=== PATIENT | male | born 1950 | race Caucasian/White ===

== ENCOUNTER 2020-06-13 14:59 | Outpatient (CLI) | payer MEDICARE, OTHER, SELFPAY ==
[2020-06-13 17:06] LABS: Estmated Average Glucose 117; Hemoglobin A1C 5.7 % (4.0-6.0)
[2020-06-16 23:58] LABS: Immunoglobulin A 68 mg/dL (70-320)
[2020-06-17 15:34] LABS: Tissue Transglutaminase IgA Ab <1 U/mL; Tissue transglutaminase Ab.IgG 2 U/mL
[2020-06-19 16:38] LABS: Gliadin Ab.IgA 2 U (<20); Gliadin Ab.IgG 2 U (<20)
== END 2020-06-13 15:00 | disposition home or self-care (01) ==
LOC: LAB 15:03
PROVIDERS: PCP Internal Medicine; Visit Provider Internal Medicine
DX: E03.9 Hypothyroidism, unspecified (principal); E11.9 Type 2 diabetes mellitus without complications; K52.9 Noninfective gastroenteritis and colitis, unspecified; K90.0 Celiac disease
CPT/HCPCS: 82784; 83036; 83516; 84443; 99204

== ENCOUNTER → 2020-06-14 11:06 | Outpatient (BNVA) | payer MEDICARE, OTHER, SELFPAY | PROVIDERS: PCP Internal Medicine; Visit Provider Internal Medicine | DX: E03.9 Hypothyroidism, unspecified (principal); E11.9 Type 2 diabetes mellitus without complications; K52.9 Noninfective gastroenteritis and colitis, unspecified; K90.0 Celiac disease; R19.7 Diarrhea, unspecified | CPT/HCPCS: 87506 ==

== ENCOUNTER → 2020-07-24 12:59 | Outpatient (BNVA) | payer MEDICARE, OTHER, SELFPAY | PROVIDERS: PCP Internal Medicine; Visit Provider Internal Medicine | DX: E03.9 Hypothyroidism, unspecified (principal); E11.9 Type 2 diabetes mellitus without complications; K52.9 Noninfective gastroenteritis and colitis, unspecified; K90.0 Celiac disease | CPT/HCPCS: 99213 ==

== ENCOUNTER → 2020-08-28 13:18 | Outpatient (BNVA) | payer MEDICARE, OTHER, SELFPAY | PROVIDERS: PCP Internal Medicine; Visit Provider Internal Medicine | DX: E03.9 Hypothyroidism, unspecified (principal); E11.9 Type 2 diabetes mellitus without complications; E66.01 Morbid (severe) obesity due to excess calories; Z68.42 Body mass index [BMI] 45.0-49.9, adult; I10 Essential (primary) hypertension; K58.0 Irritable bowel syndrome with diarrhea | CPT/HCPCS: 99214 ==

== ENCOUNTER → 2020-10-12 10:25 | Outpatient (BNVA) | payer MEDICARE, OTHER, SELFPAY | PROVIDERS: PCP Internal Medicine; Visit Provider Internal Medicine | DX: E03.9 Hypothyroidism, unspecified (principal); E11.9 Type 2 diabetes mellitus without complications; E66.01 Morbid (severe) obesity due to excess calories; Z68.42 Body mass index [BMI] 45.0-49.9, adult; I10 Essential (primary) hypertension; K58.0 Irritable bowel syndrome with diarrhea | CPT/HCPCS: 99213 ==

== ENCOUNTER → 2020-10-16 11:03 | Outpatient (BNVA) | payer MEDICARE, OTHER, SELFPAY | PROVIDERS: PCP Internal Medicine; Visit Provider Internal Medicine | DX: E11.9 Type 2 diabetes mellitus without complications (principal); K52.9 Noninfective gastroenteritis and colitis, unspecified | CPT/HCPCS: 82784; 83036; 83516 ==

== ENCOUNTER → 2020-11-01 08:53 | Outpatient (BNVA) | payer MEDICARE, OTHER, SELFPAY | PROVIDERS: PCP Internal Medicine; Visit Provider Internal Medicine | DX: T18.9XXA Foreign body of alimentary tract, part unspecified, initial encounter (principal); X58.XXXA Exposure to other specified factors, initial encounter | CPT/HCPCS: 74018 ==

== ENCOUNTER → 2021-01-04 11:30 | Outpatient (BNVA) | payer MEDICARE, OTHER, SELFPAY | PROVIDERS: PCP Internal Medicine; Visit Provider Internal Medicine | DX: T18.9XXA Foreign body of alimentary tract, part unspecified, initial encounter (principal); X58.XXXA Exposure to other specified factors, initial encounter | CPT/HCPCS: 74018 ==

== ENCOUNTER 2021-02-05 04:54 | Inpatient (IN) | payer MEDICARE, OTHER, SELFPAY ==
[2021-02-05] VITALS (49 sets, daily range): BP systolic 105–166; BP diastolic 70–102; PULSE 78–100; RESP 11–31; TEMP 36.2; O2SAT 76–98; BMI 44.3
[2021-02-05 05:08] LABS: ABG PCO2 39.2 mmHg (35-45); ABG PH Result 7.43 (7.35-7.45); Arterial Blood Gas Hematocrit 46.2 % (42-52); Base Excess ABG 1.5 mmol/L (-2.0-2.0); Blood Gas Allen Test Pos; Blood Gas Sample Site Radial, left; Blood Gas Sample Type Arterial; HCO3 ABG 25.9 mmol/L (22-26); Oxygen Device OXY MASK; PO2 ABG 50.6 mmHg (80.0-100.0)
--- NOTE | 2021-02-05 05:11 | XRR_ITS ---
PROCEDURE INFORMATION: Exam: XR Chest Exam date and time: 02/05/2021 5:11 AM Age: 70 years old Clinical indication: Dyspnea; Additional info: SOB TECHNIQUE: Imaging protocol: XR of the chest. Views: 1 view. COMPARISON: CR XR abdomen 1V* [id number] 01/04/2021 11:36 AM FINDINGS: Lungs: Shallow lung volumes. Slight patchy densities in the right middle and lower lung and probable slight stranding in the medial left lung base, new since previously. No apparent consolidation. Pleural spaces: No pneumothorax or apparent pleural fluid. Heart/Mediastinum: Possible cardiomegaly despite the supine positioning. Mediastinal widening, possibly due to lipomatosis. Vasculature: Apparent narrowing of the distal trachea in the area of its mild displacement to the right by the aortic arch. Bones/joints: No visible acute bony disease. XR/XR chest 1V portable [id number] IMPRESSION: 1. Interval appearance of densities in the lower lungs possibly due to atelectasis and/or pneumonia. 2. Possible cardiomegaly. 3. Mild displacement and probable narrowing of the distal trachea due to the aortic arch. Other findings detailed above.
[2021-02-05 05:19] LABS: Glucose Point of Care 242 mg/dL (70-110)
[2021-02-05 05:27] LABS: Basophils % 0.1 %; Hematocrit 46.8 % (42.0-52.0); Hemoglobin 15.3 g/dL (11.7-16.6); Lymphocytes # 0.2 10^3/uL (0.8-4.8); Lymphocytes % 1.6 %; Mean Corpuscular HGB Conc 32.7 g/dL (30.0-36.0); Mean Corpuscular Hemoglobin 29.8 pg (28.0-34.0); Mean Corpuscular Volume 91.1 fL (80-94); Mean Platelet Volume 9.4 fL (7.4-10.4); Monocytes % 7.8 %; Neutrophils # 10.43 10^3/uL (1.8-7.7); Neutrophils % 82.1 %; Nucleated Red Blood Cells % 0 %; Platelet Count 309 10^3/cmm (130-400); Red Blood Count 5.14 10^6/uL (4.1-5.3); Red Cell Distribution Width 14.1 % (12.1-15.1); White Blood Count 12.7 10^3/uL (4.0-10.0)
[2021-02-05 05:45] LABS: Lactic Sepsis W/Reflex 1.4 mmol/L (0.5-2.2)
[2021-02-05 05:57] LABS: Slide Review Slide Review Perform
--- NOTE | 2021-02-05 07:19 | W.ED.SOB ---
HPI - SOB/Dyspnea General: Chief Complaint: Shortness of Breath/Dyspnea Stated Complaint: fall,dizzy,nausea,sob Time Seen by Provider: 02/05/21 04:58 History of Present Illness: HPI Narrative: 70-year-old diabetic male with a history of COVID-19. He is on day 12 I believe. He spent 5 days in the hospital in [facility] getting treatment, mainly with oxygen. He was sent home yesterday. He states he has been dizzy since he was sent home. 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 On EMS arrival, his oxygen saturation was evidently in the mid 60s MD elicited complaint: shortness of breath and cough Pertinent past history: diabetes Onset (ago): day(s) Context: recent illness Timing: constant Severity: moderate Exacerbating factors: lying flat and exertion Relieving factors: oxygen, rest and upright position Associated symptoms: Reports cough and dizziness; Deny chest pain, diaphoresis, fever(s), hemoptysis, nausea, syncope or vomiting Review of Systems Const: Denies: fever(s) or diaphoresis Card: Denies: chest pain or syncope Resp: Denies: hemoptysis GI: Denies: nausea or vomiting Neuro: Reports: dizziness PFSH ED PFSH: Medical History Celiac disease Diabetes mellitus type II, non insulin dependent Diverticulosis Non-Hodgkin's lymphoma in remission Surgical History History of arthroscopic knee surgery Family History Mother Diabetes Social History Smoking and tobacco status: former smoker Alcohol intake: never Physical Exam Const: GENERAL APPEARANCE: ill appearing and frail appearing ORIENTATION/CONSCIOUSNESS: Yes oriented to person and Yes oriented to place; not oriented to time HENMT: COMMON NORMALS: normocephalic and Normal external nose present HEAD & SCALP: normocephalic FACE & SINUS: normal facial exam NOSE: Normal external nose present and No nasal discharge present Eye: COMMON NORMALS: Equal, round and reactive pupils present, EOMs intact bilaterally and conjunctivae normal EYELID: eyelids normal CONJUNCTIVA: Yes conjunctivae normal PUPIL: Yes Equal, round and reactive pupils present Neck/C-Spine: GENERAL: No tracheal deviation Chest: COMMONS NORMALS: normal inspection of the chest Resp: COMMON NORMALS: clear to auscultation bilaterally EFFORT & INSPECTION: Yes tachypneic, Yes respiratory distress, Yes retractions, No uses accessory muscles and No tracheal deviation AUSCULTATION: clear to auscultation bilaterally, no rhonchi, no wheezes and diminished lung sounds Cardio: COMMON NORMALS: regular rate and regular rhythm RATE: regular rate RHYTHM: regular rhythm HEART SOUNDS: no murmurs PERIPHERAL PULSES: radial pulses present GI: INSPECTION: No abdominal distension AUSCULTATION: No Hyperactive bowel sounds present and No Hypoactive bowel sounds present PALPATION: No Guarding due to palpation present (GI) and No Rigid due to palpation PERCUSSION: no dullness to percussion and no tympanic to percussion Neuro: SENSORIUM/ORIENTATION: Yes oriented to person, Yes oriented to place and No oriented to time Psych: COMMON NORMALS: mental status grossly normal Skin: COMMON NORMALS: no rashes or lesions noted GENERAL SKIN EXAM: no rashes or lesions noted Course Vital Signs: Vital signs: Vital Signs Temperature 97.1 F L 02/05/21 04:57 Pulse Rate 78 02/05/21 06:22 Respiratory Rate 20 H 02/05/21 06:22 Blood Pressure 150/92 02/05/21 06:22 Pulse Oximetry 98 02/05/21 06:22 MDM - SOB/Dyspnea MDM Narrative: Medical decision making narrative: Patient originally placed on oxygen mask on arrival with oxygen saturations in the upper 80s to low 90s. He then began to get tired, and had to be placed on BiPAP. He is tolerating the BiPAP nicely with a saturation of 93%. Respirations of come down. His heart rates in the 80s. White blood cell count 12.7. Hemoglobin is 15. Chest x-ray shows airspace densities in the lower lungs bilaterally. The rest of this patient's laboratory is pending. He will be checked out to Dr. Kemp at shift change. As he is on BiPAP, he will require admission. Lab Data: Labs: Lab Results 02/05/21 02/05/21 02/05/21 Range/Units 05:00 05:00 05:00 WBC 12.7 H (4.0-10.0) 10^3/ uL RBC 5.14 (4.1-5.3) 10^6/u L Hgb 15.3 (11.7-16.6) g/dL Hct 46.8 (42.0-52.0) % MCV 91.1 (80-94) fL MCH 29.8 (28.0-34.0) pg MCHC 32.7 (30.0-36.0) g/dL RDW 14.1 (12.1-15.1) % Plt Count 309 (130-400) 10^3/c mm MPV 9.4 (7.4-10.4) fL Neut % (Auto) 82.1 % Lymph % (Auto) 1.6 % Nash % (Auto) 7.8 % Eos % (Auto) 0.0 % Baso % (Auto) 0.1 % Neut # (Auto) 10.43 H (1.8-7.7) 10^3/u L Lymph # (Auto) 0.2 L (0.8-4.8) 10^3/u L Nash # (Auto) 1.0 H (0.2-0.9) 10^3/u L Eos # (Auto) 0.0 (0.0-0.8) 10^3/u L Baso # (Auto) 0.0 (0.0-0.1) 10^3/u L Nucleated RBC % (a uto) 0 % Nucleated RBCs # 0.0 /100WBC Fibrinogen (174-498) mg/dL Specimen Type Arterial Sample Site Radial, left ABG pH 7.43 (7.35-7.45) ABG pCO2 39.2 (35-45) mmHg ABG pO2 50.6 L (80.0-100.0) mmH g ABG HCO3 25.9 (22-26) mmol/L ABG Base Excess 1.5 (-2.0-2.0) mmol/ L Luis Test Pos Hematocrit 46.2 (42-52) % O2 Delivery Device Oxy mask O2 Liters/Min 6.0 % Gas Compressor Turbine Operator ID [email or web address] Sodium Cancelled Potassium Cancelled Chloride Cancelled Carbon Dioxide Cancelled Anion Gap Cancelled BUN Cancelled Creatinine Cancelled GFR Calculation Cancelled Glucose Cancelled POC Glucose (70-110) mg/dL Calculated Osmolal ity Cancelled Lactic Acid (0.5-2.2) mmol/L Calcium Cancelled Total Bilirubin Cancelled AST Cancelled ALT Cancelled Alkaline Phosphata se Cancelled C-Reactive Protein Cancelled NT-Pro-B Natriuret Pep Cancelled Total Protein Cancelled Albumin Cancelled Globulin Cancelled Procalcitonin Cancelled 02/05/21 02/05/21 02/05/21 Range/Units 05:00 05:15 08:22 WBC (4.0-10.0) 10^3/ uL RBC (4.1-5.3) 10^6/u L Hgb (11.7-16.6) g/dL Hct (42.0-52.0) % MCV (80-94) fL MCH (28.0-34.0) pg MCHC (30.0-36.0) g/dL RDW (12.1-15.1) % Plt Count (130-400) 10^3/c mm MPV (7.4-10.4) fL Neut % (Auto) % Lymph % (Auto) % Nash % (Auto) % Eos % (Auto) % Baso % (Auto) % Neut # (Auto) (1.8-7.7) 10^3/u L Lymph # (Auto) (0.8-4.8) 10^3/u L Nash # (Auto) (0.2-0.9) 10^3/u L Eos # (Auto) (0.0-0.8) 10^3/u L Baso # (Auto) (0.0-0.1) 10^3/u L Nucleated RBC % (a uto) % Nucleated RBCs # /100WBC Fibrinogen 641 H (174-498) mg/dL Specimen Type Sample Site ABG pH (7.35-7.45) ABG pCO2 (35-45) mmHg ABG pO2 (80.0-100.0) mmH g ABG HCO3 (22-26) mmol/L ABG Base Excess (-2.0-2.0) mmol/ L Luis Test Hematocrit (42-52) % O2 Delivery Device O2 Liters/Min % Gas Compressor Turbine Operator ID Sodium Potassium Chloride Carbon Dioxide Anion Gap BUN Creatinine GFR Calculation Glucose POC Glucose 242 H (70-110) mg/dL Calculated Osmolal ity Lactic Acid 1.4 (0.5-2.2) mmol/L Calcium Total Bilirubin AST ALT Alkaline Phosphata se C-Reactive Protein NT-Pro-B Natriuret Pep Total Protein Albumin Globulin Procalcitonin Discharge Plan Discharge Patient Disposition: Admitted As Inpatient Clinical Impression: Acute respiratory failure with hypoxia, COVID-19 Condition: Serious Coding Level of Care Code 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
[2021-02-05] MEDS: acetaminophen 500 mg Tablet 1000 MG PO (08:03)
[2021-02-05 08:43] LABS: Fibrinogen 641 mg/dL (174-498)
[2021-02-05 08:57] LABS: Alanine Aminotransferase 25 U/L (0-41); Albumin Level 3.3 g/dL (3.5-5.2); Alkaline Phosphatase 89 IU/L (40-130); Anion Gap 18.2 (5-19); Aspartate Amino Transferase 26 U/L (0-40); Blood Urea Nitrogen 31 mg/dL (8-23); C Reactive Protein 82.9 mg/L (0.0-4.9); Calcium 9.1 mg/dL (8.5-10.5); Carbon Dioxide 29 mmol/L (22-29); Chloride 98 mmol/L (98-107); Globulin 3.8 g/dL (1.3-4.6); Glucose 194 mg/dL (65-115); NT Pro B Type Natriuretic Pept 776 pg/mL (0-125); Osmolality Calculated 304 mOsm/kg (285-295); Potassium 4.2 mmol/L (3.5-5.1); Sodium 141 mmol/L (136-145); Total Bilirubin 0.7 mg/dL (0.15-1.2); Total Protein 7.1 g/dL (6.6-8.7)
[2021-02-05 09:02] LABS: D Dimer >= 20.00 ug/mIFEU (0-0.59)
--- NOTE | 2021-02-05 09:15 | CTR_ITS ---
PROCEDURE INFORMATION: Exam: CTA Chest With Contrast Exam date and time: 02/05/2021 9:15 AM Age: 70 years old Clinical indication: Shortness of breath; Patient HX: PT post covid 12 days, now very SOB and low 02 with a d-dimer greater that 20; Additional info: Shortness of breath, pulmonary embolism protocol. Covid +12 days ago. On bipap TECHNIQUE: Imaging protocol: Computed tomographic angiography of the chest with contrast. 3D rendering (Not supervised by radiologist): MIP and/or 3D reconstructed images were created by the technologist. Radiation optimization: All CT scans at this facility use at least one of these dose optimization techniques: automated exposure control; mA and/or kV adjustment per patient size (includes targeted exams where dose is matched to clinical indication); or iterative reconstruction. Contrast material: OMNI 350; Contrast volume: 68 ml; Contrast route: INTRAVENOUS (IV); COMPARISON: CR (CHEST, ) 02/05/2021 5:49 AM RADIATION DOSE METRICS: Total DLP (mGy-cm): 501.34 FINDINGS: Pulmonary arteries: No evidence of pulmonary embolism to the segmental level. Motion limits evaluation of the lung bases and subsegmental emboli cannot be excluded. Aorta: Unremarkable. No aortic aneurysm. No aortic dissection. Lungs: Extensive interstitial and alveolar opacities throughout the both lungs. with relative sparing of the anterior portions. Expiratory phase imaging; major airways patent. Pleural spaces: Unremarkable. No pneumothorax. No pleural effusion. Heart: Unremarkable. No cardiomegaly. No pericardial effusion. Lymph nodes: Unremarkable. No enlarged lymph nodes. Bones/joints: No acute or aggressive osseous lesion. Soft tissues: Unremarkable. CT/CT angio chest [id number] IMPRESSION: 1. No evidence of pulmonary embolism to the segmental level. Motion limits evaluation of the lung bases and subsegmental emboli cannot be excluded. 2. Extensive bilateral interstitial and alveolar opacities with relatively sparing of the anterior lungs, consistent with multifocal pneumonia. Radiation Dose CTDIVOL = (mGy): DLP = 501.34 (mGy-cm)
[2021-02-05] MEDS: piperacillin-tazobactam 4.5 GM in sodium chloride 0.9% (plus) 50 ML IV (09:17)
[2021-02-05] MEDS: iohexol 350 mg/mL 100 mL Btl IV (10:13)
--- NOTE | 2021-02-05 10:23 | PC.PHAR ---
pts verified pts medications-pts states the pt is still taking levothyroxine 88mcg (last filled on 07/31/20 90d/s) and lovastatin 40mg (last filled on 07/18/20 90d/s [facility] states [facility] have another rx on hold)-pts states the pt only took cymbalta 30mg for a week last filled on 10/25/20 90d/s-pts states the pt only takes the sildenafil 50mg as prn rx filled on 11/20/20 90d/s for 50mg daily-pts states the pt never started the augmentin 875/125mg filled on 01/24/21 10d/s
[2021-02-05] MEDS: dexamethasone 4 mg/mL INJ 6 MG IVP (11:45)
--- NOTE | 2021-02-05 12:05 | ECG_ITS ---
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
--- NOTE | 2021-02-05 12:08 | P.HP_ITS ---
Providers/Chief Complaint Primary Care Provider: Alvin Osei MD Chief Complaint: fall,dizzy,nausea,sob History of Present Illness Kain Gallegos is a 70 year old male who was recently at [facility] hospitalized from January 31 through February 04. Records are still pending but from talking with I believe he likely received remdesivir and dexamethasone there. He was discharged on the , on 3 to 4 L of oxygen. reports as soon as she got him home she noticed his saturation was low and increased it to 4 to 5 L. He was confused at times, and ultimately fell at home 7 to 8 hours later and she decided to bring him into the hospital. He has had symptoms since around the . Symptoms that started then was just a very mild cough. He became more ill and was coughing up some blood on the or and at that time she had them tested for Covid, and the test was positive. He has not had fevers in the last several days. He has not been eating very poorly and drinking very poorly. He has had some nausea but no vomiting. He always has some loose stool. He has not continued to cough up any blood. He is very short of breath, with any activity and reports when he removes the BiPAP just briefly to take a sip in the emergency department he gets very short of breath and his saturation plummets. He denies any chest discomfort. He has been vaccinated with the last vaccination November 04. He has not had any recent chemotherapy in years for his non-Hodgkin's lymphoma which is in remission. While in the emergency department and ABG was performed, demonstrating hypoxia and he was placed on BiPAP. CTA was performed which demonstrated multifocal pneumonia, no definite pulmonary embolism although it was a poor study. He received a dose of Zosyn at around 840 in the morning. I have been told that we do not have capacity for this patient currently as all ICU rooms are filled and it is unlikely one will be available in the near future. Therefore this history and physical can be viewed as a consultation if he is transferred to an outside facility. I am trying to coordinate care and start treatment as early as possible to improve outcome. Review of Systems General: Reports: 10 or more systems reviewed and unremarkable except in HPI and below Const: Reports: fatigue; Denies: fever(s) Eyes: Denies: change in vision ENMT: Denies: throat pain Card: Denies: chest pain Resp: Reports: dyspnea, productive cough and hemoptysis GI: Reports: nausea; Denies: abdominal pain, vomiting, hematochezia or melena : Denies: flank pain Musc: Denies: neck pain Skin/Breast: Denies: rash Neuro: Reports: confusion; Denies: headache(s) Psych: Denies: anxiety or depression Endo: Denies: polyuria Rinku/Lymph: Denies: easy bruising All/Imm: Denies: urticaria Medications/Allergies Home Medications Medication Instructions Recorded Confirmed Last Taken Type cetirizine 10 mg tablet 10 mg PO QAM 06/13/20 02/05/21 02/05/21 History levothyroxine 88 mcg tablet 88 mcg PO QAM 06/13/20 02/05/21 02/05/21 History lovastatin 40 mg tablet 40 mg PO BEDTIME 06/13/20 02/05/21 Unknown History Actos 15 mg PO QAM 02/05/21 02/05/21 02/05/21 History Vitamin C 1 tab PO DAILY 02/05/21 02/05/21 Unknown History Vitamin D3 1 tab PO DAILY 02/05/21 02/05/21 Unknown History amoxicillin-pot clavulanate 1 tab PO BID 02/05/21 02/05/21 Unknown History elderberry fruit [Elderberry] 200 mg PO DAILY 02/05/21 02/05/21 Unknown History empagliflozin [Jardiance] 25 mg PO QAM 02/05/21 02/05/21 02/05/21 05:00 History fluticasone propionate [Flonase] 2 spray INTRANASAL QAM 02/05/21 02/05/21 Unknown History ketoconazole 1 applic TOPICAL . DIRECTED 02/05/21 02/05/21 Unknown History liraglutide [Victoza 3-Amandeep] 1.8 mg SUBCUT QAM 02/05/21 02/05/21 02/05/21 05:00 History sildenafil 50 mg PO DAILY PRN 02/05/21 02/05/21 Unknown History tizanidine 4 mg PO TID PRN 02/05/21 02/05/21 Unknown History zinc 1 tab PO DAILY 02/05/21 02/05/21 Unknown History Allergies Allergy/AdvReac Type Severity Reaction Status Date / Time Sulfa (Sulfonamide Allergy rash Verified 02/05/21 10:19 Antibiotics) PFSH Acute PFSH: Medical History (Updated 02/05/21 @ 12:31 by Sanjay Terrazas MD) Celiac disease Diabetes mellitus type II, non insulin dependent Diverticulosis Non-Hodgkin's lymphoma in remission Surgical History History of arthroscopic knee surgery Family History Mother Diabetes Social History Smoking and tobacco status: former smoker Alcohol intake: never Vitals/I&O/Wt Last Vital Signs Temp 97.1 F L 02/05/21 04:57 Pulse 84 02/05/21 09:23 Resp 18 02/05/21 09:16 BP 166/97 02/05/21 09:16 Pulse Ox 94 02/05/21 09:23 Weight last 48 hrs Weight 144.242 kg Physical Exam Narrative: EXAM NARRATIVE: General exam is an obese male, on BiPAP, who is able to answer few questions and has no obvious focal deficits HEENT: Pupils equally round. Oropharynx with BiPAP on Neck is supple no lymphadenopathy or thyromegaly Cardiovascular regular rate and rhythm, no murmur Lungs scattered rales without wheezing Abdomen is soft with positive bowel sounds. No obvious organomegaly was deferred Extremities no cyanosis clubbing. Trace edema is present Neuro no obvious focal deficits. Data : 02/05/21 05:00 02/05/21 08:22 Micro: Microbiology 02/05/21 08:22 Blood Culture - Preliminary Blood SPECIMEN COLLECTED 02/05/21 08:22 Blood Culture - Preliminary Blood SPECIMEN COLLECTED Other data: Chest x-ray demonstrates multilobar infiltrates. CTA demonstrates the same, no pulmonary embolism, poor quality, movement obscuring subsegmental arterials Fibrinogen 641, dimer 20 ABG demonstrates a pH of 7.43, PCO2 of 39, PO2 of 50 on 6 L oxygen mask BNP elevated at 776. LFTs normal EKG demonstrates sinus rhythm, normal axis, no acute changes A&P Assessment and plan (1) Pneumonia due to COVID-19 virus: Patient with history of positive COVID-19 testing on 24 January according to . She is very specific and appears to be an excellent historian. Unfortunately those records are not available currently. He was hospitalized at [facility] for COVID-19 pneumonia and per history likely received dexamethasone and probably remdesivir. He has had evidence of multifocal pneumonia consistent with COVID-19. Initiate remdesivir. This may be a second 5-day course or perhaps initial if he was not given this at [facility]. Risks and benefits discussed. Dexamethasone 6 mg IV daily Review if appropriate for Tocilizumab. Note that his dimer is slightly over 75. I will be repeating these levels tomorrow and if there is any worsening consider initiation. I also will need to know if he received this at the outlying hospital. Support with BiPAP, changed to high flow oxygen if tolerated Nebs every 6 hours Note that he is vaccinated. Prophylactically we will continue Zosyn. Check MRSA PCR. Check sputum culture. Check procalcitonin. gives vague history of possible gastroparesis as well so cannot rule out aspiration. However, I think bacterial pneumonitis is much less likely. Try to balance fluid intake and output. However at this time will give 1 dose of Lasix. N.p.o. until respiratory status stabilizes. Then will initiate clear liquid consistent carb diet. Markedly elevated dimer noted. Although no definite pulmonary embolism is seen, study was poor with motion and subsegmental pulmonary arteries were not visualized. Given the patient's markedly elevated dimer, history of hemoptysis I am going to place him on a heparin drip. Check venous duplex. Status: Acute (2) Acute respiratory failure with hypoxia: See above Status: Acute (3) Elevated brain natriuretic peptide (BNP) level: Lasix 40 mg IV x1 Check troponin Check echocardiogram Status: Acute (4) Diabetes mellitus type II, non insulin dependent: Lantus nightly Sliding scale insulin Expect his blood sugars to be higher secondary to dexamethasone Status: Acute (5) Hypothyroidism: Check TSH, continue supplementation Status: Acute Qualifiers: Hypothyroidism type: acquired Qualified Code(s): E03.9 - Hypothyroidism, unspecified (6) Hypertension: Monitor Status: Acute Qualifiers: Hypertension type: essential hypertension Qualified Code(s): I10 - Essential (primary) hypertension (7) IBS (irritable bowel syndrome): Status: Acute Qualifiers: Irritable bowel syndrome type: with diarrhea Qualified Code(s): K58.0 - Irritable bowel syndrome with diarrhea (8) Non-Hodgkin's lymphoma in remission: No recent chemo Status: Acute Additional A&P Information Hyperlipidemia. Continue statin Multiple other medical problems as outlined in past medical history Full code Heparin drip will suffice for DVT prophylaxis Attestations Medical Necessity Statement*: Will need greater than 2 midnight stay secondary to COVID-19 pneumonia with respiratory failure Time Spent in Patient Care: Greater than 35 minutes Critical Care Time: The high probability of a clinically significant, sudden or life threatening deterioration of the patient's [pulmonary, cardiac] system(s) required my full and direct attention, intervention and personal management. The critical care time is as shown. 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
[2021-02-05] MEDS: remdesivir 200 MG in sodium chloride 0.9% (100 ml) 100 ML 100 MG IV (12:28)
[2021-02-05] MEDS: FUROsemide 10 mg/mL SDV 4mL 40 MG IVP (12:30)
[2021-02-05 12:51] LABS: ABG PCO2 40.9 mmHg (35-45); ABG PH Result 7.46 (7.35-7.45); Arterial Blood Gas Hematocrit 47.4 % (42-52); Base Excess ABG 4.6 mmol/L (-2.0-2.0); Blood Gas Allen Test Pos; Blood Gas Sample Type Arterial; HCO3 ABG 28.9 mmol/L (22-26); PO2 ABG 69.1 mmHg (80.0-100.0)
[2021-02-05 12:52] LABS: Blood Gas Sample Site Radial, left; Oxygen Device BIPAP
[2021-02-05 13:02] LABS: Procalcitonin 0.11 ng/mL (0-0.5); Thyroid Stimulating Hormone 0.13 uIU/mL (0.27-4.20)
[2021-02-05 13:19] LABS: Troponin T (5th) Once 16 ng/L (0-15)
[2021-02-05] MEDS: heparin drip 25,000 UNIT/500 ML PREMIX 103.85 UNIT IV (14:13)
[2021-02-05] MEDS: heparin 5,000 unit/mL INJ 1 mL IV ×2 (14:20→21:07)
[2021-02-05 14:52] LABS: Urine Appearance Clear (CLEAR); Urine Color Straw (Yellow)
[2021-02-05 14:53] LABS: Bilirubin Urine Neg (Negative); Blood Urine 2+ (Negative); Glucose Urine UA 4+ (Normal); Ketones Urine 1+ (Negative); Leukocyte Esterase Urine Negative (Negative); Nitrate Urine Negative (Negative); Protein Urine Neg (Negative); Urobilinogen Urine Norm (Negative); pH Urine 5 (5-7)
[2021-02-05 14:54] LABS: Add Urine Culture? No; Bacteria Urine TRACE /hpf; WBC Urine RARE /hpf (0-5)
[2021-02-05 16:58] LABS: Glucose Point of Care 165 mg/dL (70-110)
[2021-02-05] MEDS: piperacillin-tazobactam 3.375 GM in sodium chloride 0.9% (plus) 50 ML IV (18:08)
--- NOTE | 2021-02-05 18:15 | PC.PT ---
I spoke to his nurse today and she states that he had fallen and spent the day in ER. She'd like for us to do his eval tomorrow.
--- NOTE | 2021-02-05 19:00 | PC.NURSE ---
Heparin Drip Heparin drip infusing at 25 mls/hr at the beginning of this nurse shift. Lab came to draw PTT at 1900. PTT result came back 33.8, gave 7000 unit Heparin bolus per protocol and titrated drip up to 33 mls/hr per Heparin protocol.
[2021-02-05 19:25] LABS: INR 1.03 (0.8-1.2)
[2021-02-05 19:59] LABS: Partial Thromboplastin Time 33.8 SECONDS (23.9-36.7)
[2021-02-05] MEDS: ipratropium-albuterol 3 mL Neb INHALATION (20:26)
[2021-02-05] MEDS: insulin glargine 100 units/1 mL 10 UNIT SUBCUT (21:06)
[2021-02-05] MEDS: atorvastatin 40 mg Tablet 20 MG PO (21:06)
[2021-02-05 21:30] LABS: Glucose Point of Care 230 mg/dL (70-110)
[2021-02-06] VITALS (65 sets, daily range): BP systolic 117–156; BP diastolic 55–92; PULSE 72–98; RESP 13–30; TEMP 36.6–37.2; O2SAT 79–98; BMI 43.1
[2021-02-06] MEDS: piperacillin-tazobactam 3.375 GM in sodium chloride 0.9% (plus) 50 ML IV ×3 (01:58→18:49)
[2021-02-06] MEDS: ipratropium-albuterol 3 mL Neb INHALATION ×4 (02:14→20:22)
--- NOTE | 2021-02-06 04:30 | PC.NURSE ---
Heparin Drip-No Change Lab bhanu PTT this morning, it was 58.1 per protocol Heparin drip remained the same at 33 mls/hr.
[2021-02-06 05:26] LABS: INR 1.09 (0.8-1.2)
[2021-02-06 05:28] LABS: Partial Thromboplastin Time 58.1 SECONDS (23.9-36.7)
[2021-02-06 05:31] LABS: Alanine Aminotransferase 21 U/L (0-41); Albumin Level 2.8 g/dL (3.5-5.2); Alkaline Phosphatase 80 IU/L (40-130); Anion Gap 14.2 (5-19); Aspartate Amino Transferase 18 U/L (0-40); Blood Urea Nitrogen 29 mg/dL (8-23); C Reactive Protein 69.8 mg/L (0.0-4.9); Calcium 8.7 mg/dL (8.5-10.5); Carbon Dioxide 29 mmol/L (22-29); Chloride 97 mmol/L (98-107); Globulin 3.3 g/dL (1.3-4.6); Glucose 109 mg/dL (65-115); Osmolality Calculated 290 mOsm/kg (285-295); Potassium 3.2 mmol/L (3.5-5.1); Sodium 137 mmol/L (136-145); Total Bilirubin 0.6 mg/dL (0.15-1.2); Total Protein 6.1 g/dL (6.6-8.7)
--- NOTE | 2021-02-06 06:30 | PC.NURSE ---
Shift Summary Patient had an uneventful night. He is on heated high flow at 50 L and 80% FIO2. Heparin drip is infusing in the right AC IV site at 33 mls/hr per protocol, left AC IV is saline locked. Matos catheter drained 1000 mls out of dark yellow urine all evening. Patient had one formed bowel movement. He has a skin tear on the left and right forearm, both are covered with dressings, no other skin issues noted at this time.
[2021-02-06] MEDS: heparin drip 25,000 UNIT/500 ML PREMIX 33 UNIT IV (06:43)
[2021-02-06 07:33] LABS: Magnesium 1.9 mg/dL (1.7-2.3)
[2021-02-06 08:07] LABS: Glucose Point of Care 188 mg/dL (70-110)
[2021-02-06] MEDS: potassium chloride ER 20 mEq Tablet 40 MEQ PO (08:20)
[2021-02-06] MEDS: levothyroxine 75 mcg Tablet PO (08:21)
[2021-02-06] MEDS: dexamethasone 4 mg/mL INJ 6 MG IVP (08:24)
--- NOTE | 2021-02-06 09:38 | PC.CHAP ---
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 [] Patient/Family/Request visit [] Outpatient visit [] Follow-up visit [] Physician referral [] Code/Alert [x] Routine visit [] Staff referral [] Actively dying [] Patient sleeping [] Family support [] [] Out of room [] Palliative care [] [x] Receiving care in room [] Pre-surgical visit [] Trauma [] Long length of stay [x] ICU visit [] Other: Relational/Emotional Strength [] Patient feels connected with others/family/visitors/staff [] Distress [] Loneliness/isolation [] Abandonment Spirituality of Patient [] Person of Renetta [] Attends Muslim of their [place] [] Believes in Prayer [] Reads Bible or Religion materials [] There are Spiritual issues to be addressed Band And Cuff Cutter Interventions [x] Prayer [] Active listening [] Non-anxious presence [] Spiritual/emotional support [] Crisis/trauma care [] Spiritual counseling [] Bereavement support [] Provided bereavement packet [] Provided Bible/devotional materials [] Provided toy/stuffed animal, coloring book to patient or family member [] Provided Communion [] Anointing/[place] [] Salvation [x] Completed spiritual assessment [] Other: Impact on Illness or Injury [] Angry [] Fearful [] Anxious [] Often cries [] Exhaustion [] Unable to work [] Unable to attend gnosticism [] Unable to walk/stand [] Unable to read [] Unable to drive [] Unable to eat/drink [] Unable to sleep [] Unable to be with family [] Patient intubated [] Other: Summary Time spent with patient
--- NOTE | 2021-02-06 09:42 | P.PN_ITS ---
Subjective Subjective: Interval history: Kain reports he does not feel much shortness of breath while on the oxygen. He is still feeling very weak. No overall changes since last night. He denies any chest discomfort. He has had no hemoptysis in the hospital. Medications: Reviewed: Yes Vitals/I&O/Wt Last Vital Signs Temp 98.3 F 02/06/21 08:30 Pulse 90 02/06/21 09:00 Resp 20 H 02/06/21 09:00 BP 142/81 02/06/21 09:00 Pulse Ox 92 02/06/21 09:00 02/05/21 02/06/21 02/06/21 22:59 06:59 14:59 Intake Total 786.749 / 786.749 293.251 / 1080.000 Output Total 1600 / 1600 1000 / 2600 Balance -813.251 / -813.251 -706.749 / -1520.000 Weight last 48 hrs Weight 140.188 kg Weight 144.242 kg Physical Exam Narrative: EXAM NARRATIVE: General exam currently on high flow nasal cannula, and does not appear to be in respiratory distress on this. Neck is supple no lymphadenopathy or thyromegaly Cardiovascular regular rate and rhythm, no murmur Lungs scattered rales without wheezing Abdomen is soft with positive bowel sounds. No obvious organomegaly Extremities no cyanosis clubbing. No significant edema Urinary Catheter Management^: Matos: Cath Placed During This Visit: yes Reason for Continuing Indwelling Catheter: Accurate Measurement of Urinary Output in Critically Ill Patients Urinary Catheter Date of Insertion: 02/05/21 Urinary Catheter Time of Insertion: 13:00 Data : 02/05/21 05:00 02/06/21 04:31 Micro: Microbiology 02/05/21 08:22 Blood Culture - Preliminary Blood NEGATIVE TO DATE 02/05/21 08:22 Blood Culture - Preliminary Blood NEGATIVE TO DATE A&P Assessment and plan (1) Pneumonia due to COVID-19 virus: Patient with history of positive COVID-19 testing on 24 January according to . He was tested for Covid and apparently was negative at that time but retested on January 31 when admitted to [facility] and was positive at that time. He received dexamethasone, but I do not have any indication that he received remdesivir at that time. He has had evidence of multifocal pneumonia consistent with COVID-19. Currently on remdesivir. This would be his initial 5-day course. Benefit may be low Continue dexamethasone 6 mg IV daily Initiate Tocilizumab. Oxygenation appears worse today. Discussed with pulmonary who will also consult. Nebs every 6 hours Note that he is vaccinated fully. Prophylactically we will continue Zosyn. Await MRSA PCR. Await sputum culture. Procalcitonin was not elevated. gives vague history of possible gastroparesis as well so cannot rule out aspiration. However, I think bacterial pneumonitis is much less likely. Try to balance fluid intake and output. Negative fluid balance currently Change diet to consistent carb Markedly elevated dimer noted. Although no definite pulmonary embolism is seen, study was poor with motion and subsegmental pulmonary arteries were not visualiz ed. Given the patient's markedly elevated dimer, history of hemoptysis I placed him on a heparin drip. Venous duplex was ordered and pending Status: Acute (2) Acute respiratory failure with hypoxia: See above Pulmonary consultation today. Status: Acute (3) Elevated brain natriuretic peptide (BNP) level: Lasix 40 mg IV x1 given in emergency department Troponin not significantly elevated Await echocardiogram Status: Acute (4) Diabetes mellitus type II, non insulin dependent: Lantus nightly Sliding scale insulin Expect his blood sugars to be higher secondary to dexamethasone Status: Acute (5) Hypothyroidism: TSH low. Thyroid hormone adjusted Status: Acute Qualifiers: Hypothyroidism type: acquired Qualified Code(s): E03.9 - Hypothyroidism, unspecified (6) Hypertension: Monitor Status: Acute Qualifiers: Hypertension type: essential hypertension Qualified Code(s): I10 - Essential (primary) hypertension (7) IBS (irritable bowel syndrome): Status: Acute Qualifiers: Irritable bowel syndrome type: with diarrhea Qualified Code(s): K58.0 - Irritable bowel syndrome with diarrhea (8) Non-Hodgkin's lymphoma in remission: No recent chemo Status: Acute Additional A&P Information Hypokalemia, supplement today hyperlipidemia. Continue statin Multiple other medical problems as outlined in past medical history Full code Heparin drip will suffice for DVT prophylaxis Attestations Medical Necessity Statement*: Needs continued hospitalization secondary to acute respiratory failure requiring high amounts of high flow oxygen Critical Care Time: The high probability of a clinically significant, sudden or life threatening deterioration of the patient's [pulmonary] system(s) required my full and direct attention, intervention and personal management. The critical care time is as shown. 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
[2021-02-06 10:38] LABS: Basophils % 0.1 %; Eosinophils % 0.1 %; Hematocrit 43.4 % (42.0-52.0); Hemoglobin 14.2 g/dL (11.7-16.6); Lymphocytes # 0.3 10^3/uL (0.8-4.8); Lymphocytes % 2.5 %; Mean Corpuscular HGB Conc 32.7 g/dL (30.0-36.0); Mean Corpuscular Hemoglobin 29.3 pg (28.0-34.0); Mean Corpuscular Volume 89.5 fL (80-94); Mean Platelet Volume 9.4 fL (7.4-10.4); Monocytes % 7.9 %; Neutrophils # 9.69 10^3/uL (1.8-7.7); Neutrophils % 73.9 %; Nucleated Red Blood Cells % 0 %; Platelet Count 245 10^3/cmm (130-400); Positive C 1; Positive M 1; Red Blood Count 4.85 10^6/uL (4.1-5.3); Red Cell Distribution Width 13.9 % (12.1-15.1); White Blood Count 13.1 10^3/uL (4.0-10.0)
[2021-02-06 10:50] LABS: Partial Thromboplastin Time 54.4 SECONDS (23.9-36.7)
[2021-02-06] MEDS: heparin 5,000 unit/mL INJ 1 mL IV (11:02)
[2021-02-06 11:19] LABS: Slide Review Slide Review Perform
[2021-02-06 12:00] LABS: Glucose Point of Care 173 mg/dL (70-110)
--- NOTE | 2021-02-06 15:47 | USCV_ITS ---
Kain Gallegos Age: 70 Gender: M : 1950 Exam Date: 02/06/2021 13:21 Ordering Phys: Sanjay Terrazas MD Technologist: Exam Location: [facility] Indication: CHEST PAIN BP: 144 / 83 HR: 86 Rhythm: Sinus Technical Quality: Fair MEASUREMENTS (Male / Female) Normal Values 2D ECHO LV Diastolic Diameter PLAX 3.5 cm 4.2 - 5.9 / 3.9 - 5.3 cm LV Systolic Diameter PLAX 2.1 cm IVS Diastolic Thickness 0.8 cm 0.6 - 1.0 / 0.6 - 0.9 cm IVS Systolic Thickness 1.5 cm LVPW Diastolic Thickness 1.0 cm 0.6 - 1.0 / 0.6 - 0.9 cm LVPW Systolic Thickness 1.2 cm LVOT Diameter 2.0 cm LV Ejection Fraction 2D Teich 68.5 % LV Ejection Fraction MOD 2C 68.9 % LV Ejection Fraction 2C AL 68.0 % LA Diameter 3.6 cm LA Width 3.8 cm LA Height 4.2 cm RA Width 3.6 cm RA Height 4.6 cm Aorta at Sinotubular Diameter 2.5 cm DOPPLER AV Peak Velocity 125.0 cm/s LVOT Peak Velocity 81.0 cm/s AV Area Cont Eq vti 1.8 cm squared AV Area Cont Eq pk 2.1 cm squared MV Area PHT 5.0 cm squared Mitral E to A Ratio 0.9 MV E' Velocity 44.5 cm/s Mitral E to MV E' Ratio 13.4 Mitral E to LV E' Lateral Ratio 16.9 Mitral E to LV E' Septal Ratio 11.1 TR Peak Velocity 130.3 cm/s TR Peak Gradient 6.8 mmHg TV Peak E Velocity 62.0 cm/s Right Atrial Pressure 3.0 mmHg Pulmonary Artery Systolic Pressu 9.8 mmHg PV Peak Velocity 72.0 cm/s FINDINGS Left Ventricle Normal left ventricular size and systolic function, EF 69 %. No regional wall motion abnormalities. Right Ventricle Normal right ventricular size and systolic function. Right Atrium Possibly of normal size Left Atrium Appears to be of normal size Mitral Valve No gross abnormalities noted Aortic Valve No gross abnormalities noted Tricuspid Valve Mild tricuspid valve regurgitation. Pulmonic Valve Pulmonic valve not well visualized. Pericardium No pericardial effusion. Aorta Normal aortic annulus size. CONCLUSIONS Normal left ventricular size and systolic function, EF 69 %. No regional wall motion abnormalities. No gross valvular abnormalities were noted. Mild biatrial enlargement. Normal LV size and ejection fraction. No previous study is available for comparison. Dr Regino Ahuja MD [facility] (Electronically Signed) Final Date: 06 February 2021 17:07 S
--- NOTE | 2021-02-06 15:47 | USCV_ITS ---
Kain Gallegos Age: 70 Gender: M : 1950 Exam Date: 02/06/2021 13:39 Ordering Phys: Sanjay Terrazas MD Technologist: [place] [facility] [place]: BILAT EDEMA HISTORY: Lower extremity swelling. PROCEDURES: The venous duplex Doppler examination of both lower extremities was performed in the standard fashion. The following venous structures were evaluated: common femoral vein, profunda vein, proximal portion of the greater saphenous vein, superficial femoral vein, and the popliteal vein. In addition, the posterior tibial and peroneal trunk were evaluated. FINDINGS: Normal 2-D Doppler and augmentation and compressibility throughout the lower extremity venous structures. Additional imaging through the proximal calf veins also reveals no thrombus. Limited evaluation of the greater saphenous vein is patent with no thrombus. CONCLUSIONS No DVT bilateral lower extremities. Dr. Ekta Coles DO (Electronically Signed) Final Date: 06 February 2021 16:14 S
--- NOTE | 2021-02-06 16:51 | P.CONIM_ITS ---
Providers/Reason For Consult Consulting Physician/Specialty*: Pulmonary critical care medicine Reason for Consult*: Severe SARS-CoV-2 pneumonia Attending Physician: Sanjay Terrazas MD Primary Care Provider: Alvin Osei MD History of Present Illness History of Present Illness Kain Gallegos is a 70 year old male who presented to the hospital with worsening respiratory status after being discharged from a different hospital on February 04. The patient is a diagnosed case of COVID-19. Her initial symptoms likely started around January 22. His positive Covid test was likely on January 24 or . He was hospitalized from January 31 through February 04. We do not have the hospital record. The patient likely received remdesivir and dexamethasone. On February 04, the patient was discharged on 3 to 4 L of oxygen. After the patient arrived home, the noticed worsening hypoxia and she increased the oxygen level. Subsequently, the patient became more ill and was brought to the hospital. Interestingly, the patient had received his Covid vaccine in November 2020. The patient was diagnosed with non-Hodgkin's lymphoma in 2017. He was under the care of an oncologist and received chemotherapy for approximately 6 months. The patient still follows up with oncologist but has not received any chemotherapy in the recent past. Initial blood work on arrival revealed elevated inflammatory markers. His D- dimer and fibrinogen levels are elevated. His CRP level was elevated at 82.9. As expected, the patient has lymphopenia. His CT angiogram revealed bilateral diffuse groundglass opacities. In addition, the patient has crazy paving pattern in the right lower lobe. There is no evid ence of pulmonary embolism. Lower extremity Doppler did not reveal any evidence of DVT. The patient is currently anticoagulated with heparin. Receiving dexamethasone and remdesivir. Received 1 dose of Tocilizumab this morning. Broadly covered for superadded bacterial infection with Zosyn. The patient was seen and examined in the intensive care unit. He is on high flow nasal cannula. Saturating in mid 90s with 75% oxygen 50 L flow. His respiratory rate is in the teens. The patient appears comfortable not having shortness of breath. Review of Systems Narrative: Unable to obtain detail review of systems because of clinical condition. The patient had been undergoing evaluation for chronic diarrhea and carries a diagnosis of IBS. He had questions about that. Meds/Allergies Home Medications and Allergies Home Medications Medication Instructions Recorded Confirmed Last Taken Type cetirizine 10 mg tablet 10 mg PO QAM 06/13/20 02/05/21 02/05/21 History levothyroxine 88 mcg tablet 88 mcg PO QAM 06/13/20 02/05/21 02/05/21 History lovastatin 40 mg tablet 40 mg PO BEDTIME 06/13/20 02/05/21 Unknown History Actos 15 mg PO QAM 02/05/21 02/05/21 02/05/21 History Vitamin C 1 tab PO DAILY 02/05/21 02/05/21 Unknown History Vitamin D3 1 tab PO DAILY 02/05/21 02/05/21 Unknown History amoxicillin-pot clavulanate 1 tab PO BID 02/05/21 02/05/21 Unknown History elderberry fruit [Elderberry] 200 mg PO DAILY 02/05/21 02/05/21 Unknown History empagliflozin [Jardiance] 25 mg PO QAM 02/05/21 02/05/21 02/05/21 05:00 History fluticasone propionate [Flonase] 2 spray INTRANASAL QAM 02/05/21 02/05/21 Unknown History ketoconazole 1 applic TOPICAL . DIRECTED 02/05/21 02/05/21 Unknown History liraglutide [Victoza 3-Amandeep] 1.8 mg SUBCUT QAM 02/05/21 02/05/21 02/05/21 05:00 History sildenafil 50 mg PO DAILY PRN 02/05/21 02/05/21 Unknown History tizanidine 4 mg PO TID PRN 02/05/21 02/05/21 Unknown History zinc 1 tab PO DAILY 02/05/21 02/05/21 Unknown History Allergies Allergy/AdvReac Type Severity Reaction Status Date / Time Sulfa (Sulfonamide Allergy rash Verified 02/05/21 10:19 Antibiotics) Current Medications Current Medications Generic Name Dose Route Start Last Admin Trade Name Freq PRN Reason Stop Dose Admin Albuterol/Ipratropium 3 ml 02/05/21 21:00 02/06/21 14:14 Ipratropium-Albuterol 3 Ml Neb INHALATION 3 ml Q6H.RESPIRATORY TANIA Administration Atorvastatin Calcium 20 mg 02/05/21 21:00 02/05/21 21:06 Atorvastatin 40 Mg Tablet PO 20 mg BEDTIME TANIA Administration Dexamethasone 6 mg 02/06/21 08:30 02/06/21 08:24 Dexamethasone 4 Mg/Ml Inj IVP 6 mg Q24H TANIA Administration Heparin Sodium (Beef Lung) 0 unit 02/05/21 12:02 02/06/21 11:02 Heparin 5,000 Unit/Ml Inj 1 Ml IV 2,800 unit PRN PRN Administration Heparin weight-base protocol Protocol Heparin Sodium/Sodium Chloride 25,000 unit in 500 mls @ 0 mls/hr 02/05/21 12:15 02/06/21 11:03 Heparin Drip IV 12.48 unit/kg/hr .Q0M TANIA 36 mls/hr Titration Protocol Per Protocol Piperacillin Sod/Tazobactam 50 mls @ 12.5 mls/hr 02/05/21 17:00 02/06/21 12:20 Sod 3.375 gm/ Sodium Chloride IV Infused Q8H TANIA Infusion Insulin Aspart 0 unit 02/05/21 18:00 02/06/21 12:05 Insulin Aspart 100 Unit/1 Ml SUBCUT 4 unit WM&BEDTIME TANIA Administration Protocol Insulin Glargine 10 unit 02/05/21 21:00 02/05/21 21:06 Insulin Glargine 100 Units/1 Ml SUBCUT 10 unit BEDTIME TANIA Administration Levothyroxine Sodium 75 mcg 02/06/21 09:00 02/06/21 08:21 Levothyroxine 75 Mcg Tablet PO 75 mcg DAILY TANIA Administration PFSH Acute PFSH: Medical History Celiac disease Diabetes mellitus type II, non insulin dependent Diverticulosis Non-Hodgkin's lymphoma in remission Surgical History History of arthroscopic knee surgery Family History Mother Diabetes Social History Smoking and tobacco status: former smoker Alcohol intake: never Vitals/I&O/Wt Last Vital Signs Temp 97.9 F 02/06/21 14:00 Pulse 88 02/06/21 16:00 Resp 14 02/06/21 16:00 BP 149/74 02/06/21 16:00 Pulse Ox 96 02/06/21 16:25 02/06/21 02/06/21 02/06/21 06:59 14:59 22:59 Intake Total 293.251 / 1080.000 653 / 653 Output Total 1000 / 2600 Balance -706.749 / -1520.000 653 / 653 Weight last 48 hrs Weight 309 lb 1 oz Weight 318 lb Physical Exam Narrative: EXAM NARRATIVE: General: Patient is awake alert and oriented, resting comfortably in bed Neck: No JVD Respiratory: Auscultation: Fine crackles at lung bases, no wheezing or rhonchi Cardiovascular: Regular rate and rhythm, S1-S2 present, no murmur, mild peripheral edema. Abdomen: Soft, nontender, distended from obesity, positive bowel sound Musculoskeletal: No obvious joint deformity Skin: No rash Neuro: Mental status is normal, no gross cranial nerve deficit, normal motor and coordination. Urinary Catheter Management^: Matos: Cath Placed During This Visit: yes Reason for Continuing Indwelling Catheter: Accurate Measurement of Urinary Output in Critically Ill Patients Urinary Catheter Date of Insertion: 02/05/21 Urinary Catheter Time of Insertion: 13:00 Data Micro: Micro: Microbiology 02/05/21 14:51 MRSA Culture - Fin al Nose 02/05/21 08:22 Blood Culture - Pr eliminary Blood NEGATIVE TO SAMI E 02/05/21 08:22 Blood Culture - Pr eliminary Blood NEGATIVE TO SAMI E Other Data: Attestation for Other Data: I personally reviewed and interpreted the following: Other data: I have reviewed the patient's laboratory, microbiologic and radiologic data. Please see the HPI for detail. A&P Assessment and plan (1) Pneumonia due to COVID-19 virus: This is a 70-year-old gentleman with severe COVID-19. The patient qualifies for diagnosis of ARDS secondary to SARS-CoV-2 pneumonia. The patient is currently requiring high flow nasal cannula, 50 L, 75% FiO2. He is saturating in the mid 90s. I was able to reduce the FiO2 to 70% without any significant desaturation. The patient is currently broadly covered with Zosyn. His procalcitonin level is normal. There is no evidence of a superadded bacterial infection. Regarding COVID-19, the patient is receiving remdesivir, dexamethasone and has also gotten 1 dose of Tocilizumab. There is no evidence of pulmonary embolism or DVT. Currently the patient is on heparin drip. I believe that the patient can be safely transferred to a regimen of Lovenox 40 mg twice daily. This would be appropriate given his obesity as well as high risk of blood clots with COVID-19. A recent study has shown that in the absence of DVT or pulmonary embolism, the low-dose anticoagulation at 3 months was associated with better survival. The patient is receiving diuretics as needed. Status: Acute (2) Acute respiratory distress syndrome (ARDS) due to severe acute respiratory syndrome coronavirus 2 (SARS-CoV-2): Status: Acute (3) Non-Hodgkin's lymphoma in remission: The patient had suffered from non-Hodgkin's lymphoma in 2018 and had received Chemotherapy. It is interesting that the patient has developed severe COVID-19 despite getting his vaccines. It is however possible that the patient may not have had an adequate response to the vaccine in the setting of lymphoma as well as previous chemotherapy. In a study, nearly 50% of patients with cancer or on antimetabolite therapy did not have adequate immunologic response to COVID-19 vaccines. The patient had questions regarding that, I have explained this to him. More importantly, the majority of patients who have done poorly had been unvaccinated in the recent past. I am hoping, the patient is going to make a recovery. Currently the patient looks comfortable. Status: Acute (4) Morbid obesity with BMI of 45.0-49.9, adult: The patient has morbid obesity as well as diabetes. Both of these risk factors have been associated with worse outcomes. Status: Acute (5) Diabetes mellitus type II, non insulin dependent: The patient is on insulin regimen Thank you for the consultation. I will continue to follow the patient. 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
[2021-02-06 17:26] LABS: Partial Thromboplastin Time 58.2 SECONDS (23.9-36.7)
[2021-02-06] MEDS: remdesivir 100 MG in sodium chloride 0.9% (100 ml) 100 ML IV (17:41)
[2021-02-06 17:53] LABS: Glucose Point of Care 233 mg/dL (70-110)
[2021-02-06 21:11] LABS: Glucose Point of Care 266 mg/dL (70-110)
[2021-02-06] MEDS: atorvastatin 40 mg Tablet 20 MG PO (21:21)
[2021-02-06] MEDS: insulin glargine 100 units/1 mL 10 UNIT SUBCUT (21:21)
[2021-02-07] VITALS (38 sets, daily range): BP systolic 115–156; BP diastolic 57–97; PULSE 77–92; RESP 14–25; TEMP 36.6–37.1; O2SAT 82–99
[2021-02-07] MEDS: enoxaparin 40 mg/0.4 mL Syringe SUBCUT ×3 (00:46→23:41)
[2021-02-07] MEDS: piperacillin-tazobactam 3.375 GM in sodium chloride 0.9% (plus) 50 ML IV ×3 (00:46→16:06)
--- NOTE | 2021-02-07 01:40 | PC.NURSE ---
RN spoke with patient's and gave update on condition and current POC. Noted differences and decreased titrations in O2 flow/need. Patient resting comfortably, with no verbalized needs at this time.
[2021-02-07] MEDS: ipratropium-albuterol 3 mL Neb INHALATION ×4 (02:13→20:07)
[2021-02-07 05:32] LABS: Alanine Aminotransferase 17 U/L (0-41); Albumin Level 2.5 g/dL (3.5-5.2); Alkaline Phosphatase 75 IU/L (40-130); Anion Gap 12.4 (5-19); Aspartate Amino Transferase 17 U/L (0-40); Blood Urea Nitrogen 28 mg/dL (8-23); Carbon Dioxide 30 mmol/L (22-29); Chloride 99 mmol/L (98-107); Globulin 3.1 g/dL (1.3-4.6); Glucose 130 mg/dL (65-115); Osmolality Calculated 293 mOsm/kg (285-295); Potassium 3.4 mmol/L (3.5-5.1); Sodium 138 mmol/L (136-145); Total Bilirubin 0.6 mg/dL (0.15-1.2); Total Protein 5.6 g/dL (6.6-8.7)
[2021-02-07 07:40] LABS: Glucose Point of Care 143 mg/dL (70-110)
[2021-02-07] MEDS: potassium chloride ER 20 mEq Tablet 40 MEQ PO ×2 (08:05→14:11)
[2021-02-07] MEDS: levothyroxine 75 mcg Tablet PO (08:06)
[2021-02-07] MEDS: dexamethasone 4 mg/mL INJ 6 MG IVP (08:53)
[2021-02-07] MEDS: acetaminophen 325 mg Tablet 650 MG PO (09:09)
--- NOTE | 2021-02-07 10:16 | PC.CHAP ---
Pastoral Care Encounter/Spiritual Assessment Type of Contact [] Declined metal ceiling builder visit [] Patient/Family/Request visit [] Outpatient visit [] Follow-up visit [] Physician referral [] Code/Alert x[x] Routine visit [] Staff referral [] Actively dying [] Patient sleeping [] Family support [] [] Out of room [] Palliative care [] [] Receiving care in room [] Pre-surgical visit [] Trauma [] Long length of stay [x] ICU visit [] Other: Relational/Emotional Strength [] Patient feels connected with others/family/visitors/staff [] Distress [] Loneliness/isolation [] Abandonment Spirituality of Patient [] Person of [place] [] Attends Mosque of their [place] [] Believes in Prayer [] Reads Bible or Islam materials [] There are Spiritual issues to be addressed [place] Interventions [x] Prayer [] Active listening [] Non-anxious presence [] Spiritual/emotional support [] Crisis/trauma care [] Spiritual counseling [] Bereavement support [] Provided bereavement packet [] Provided Bible/devotional materials [] Provided toy/stuffed animal, coloring book to patient or family member [] Provided Communion [] Anointing/[place] [] Salvation [x] Completed spiritual assessment [] Other: Impact on Illness or Injury [] Angry [] Fearful [] Anxious [] Often cries [] Exhaustion [] Unable to work [] Unable to attend christianity [] Unable to walk/stand [] Unable to read [] Unable to drive [] Unable to eat/drink [] Unable to sleep [] Unable to be with family [] Patient intubated [] Other: Summary Time spent with patient
[2021-02-07 11:02] LABS: Glucose Point of Care 237 mg/dL (70-110)
--- NOTE | 2021-02-07 14:18 | P.PN_ITS ---
Subjective Subjective: Interval history: Kain reports he feels better than on admission. Has an appetite. Short of breath with any exertion. Medications: Reviewed: Yes Vitals/I&O/Wt Last Vital Signs Temp 98.0 F 02/07/21 07:00 Pulse 85 02/07/21 14:17 Resp 20 H 02/07/21 14:10 BP 120/78 02/07/21 12:00 Pulse Ox 95 02/07/21 14:10 02/06/21 02/07/21 02/07/21 22:59 06:59 14:59 Intake Total 1198 / 1851 150 / 2001 890 / 890 Output Total 1200 / 1200 800 / 2000 Balance -2 / 651 -650 / 1 890 / 890 Weight last 48 hrs Weight 142.54 kg Weight 140.188 kg Physical Exam Narrative: EXAM NARRATIVE: General exam currently on high flow nasal cannula, 60% without distress Neck is supple no lymphadenopathy or thyromegaly Cardiovascular regular rate and rhythm, no murmur Lungs scattered rales without wheezing Abdomen is soft with positive bowel sounds. No obvious organomegaly Extremities no cyanosis clubbing. No significant edema Urinary Catheter Management^: Matos: Cath Placed During This Visit: yes Reason for Continuing Indwelling Catheter: Accurate Measurement of Urinary Outpu t in Critically Ill Patients Urinary Catheter Date of Insertion: 02/05/21 Urinary Catheter Time of Insertion: 13:00 Data : 02/06/21 10:30 02/07/21 04:26 Micro: Microbiology 02/05/21 14:51 MRSA Culture - Final Nose A&P Assessment and plan (1) Pneumonia due to COVID-19 virus: Patient with history of positive COVID-19 testing on 24 January according to . He was tested for Covid and apparently was negative at that time but retested on January 31 when admitted to [facility] and was positive at that time. He received dexamethasone, but I do not have any indication that he received remdesivir at that time. He has had evidence of multifocal pneumonia consistent with COVID-19. Currently on remdesivir. This would be his initial 5-day course. Benefit may be low Continue dexamethasone 6 mg IV daily Tocilizumab was given February 06. Nebs every 6 hours Note that he is vaccinated fully. Prophylactically we will continue Zosyn. MRSA PCR was negative. Await sputum culture. Procalcitonin was not elevated. gives vague history of possible gastroparesis as well so cannot rule out aspiration. However, I think bacterial pneumonitis is much less likely. Try to balance fluid intake and output. Change diet to consistent carb Markedly elevated dimer noted. Although no definite pulmonary embolism is seen, study was poor with motion and subsegmental pulmonary arteries were not visualized. Given the patient's markedly elevated dimer, history of hemoptysis I placed him on a heparin drip. With negative venous duplex this has been changed to Lovenox 40 mg twice daily. Appreciate pulmonary consultation Lasix 40 mg IV x1 today. Status: Acute (2) Acute respiratory failure with hypoxia: See above Status: Acute (3) Elevated brain natriuretic peptide (BNP) level: Troponin not significantly elevated Echocardiogram largely normal Status: Acute (4) Diabetes mellitus type II, non insulin dependent: Lantus nightly Sliding scale insulin Expect his blood sugars to be higher secondary to dexamethasone Status: Acute (5) Hypothyroidism: TSH low. Thyroid hormone adjusted Status: Acute Qualifiers: Hypothyroidism type: acquired Qualified Code(s): E03.9 - Hypo thyroidism, unspecified (6) Hypertension: Monitor Status: Acute Qualifiers: Hypertension type: essential hypertension Qualified Code(s): I10 - Essential (primary) hypertension (7) IBS (irritable bowel syndrome): Status: Acute Qualifiers: Irritable bowel syndrome type: with diarrhea Qualified Code(s): K58.0 - Irritable bowel syndrome with diarrhea (8) Non-Hodgkin's lymphoma in remission: No recent chemo Status: Acute Additional A&P Information Hypokalemia, supplement again today hyperlipidemia. Continue statin Multiple other medical problems as outlined in past medical history Full code Lovenox will suffice for DVT prophylaxis Attestations Medical Necessity Statement*: Needs continued hospitalization for treatment of respiratory failure with high flow oxygen secondary to COVID-19 pneumonia. Critical Care Time: The high probability of a clinically significant, sudden or life threatening deterioration of the patient's [pulmonary] system(s) required my full and direct attention, intervention and personal management. The critical care time is as shown. 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
[2021-02-07] MEDS: FUROsemide 10 mg/mL SDV 4mL 40 MG IVP (14:36)
[2021-02-07 16:31] LABS: Glucose Point of Care 464 mg/dL (70-110)
[2021-02-07] MEDS: remdesivir 100 MG in sodium chloride 0.9% (100 ml) 100 ML IV (17:25)
--- NOTE | 2021-02-07 17:48 | PC.NURSE ---
Pt states, I am feeling a lot better today. I feel like the sleep I was able to get last night helped a lot. Pt lungs sounds noted to be diminished bilaterally. Pt bowel sounds active reporting last bowel movement was 7/6. 2+ pitting edema to lower extremities this am.. Pt was given one dose of lasix per Dr. Terrazas's orders. Pt had 3,000ml of urine out this 12hour shift. Pt participated with physical therapy today, pt sitting up in chair on F watching TV and eating dinner. Pt requesting to get back in bed at this time, up with the assistance of two nurses.
[2021-02-07 19:51] LABS: Glucose Point of Care > 600 mg/dL (70-110)
[2021-02-07 19:51] LABS: Glucose Point of Care 448 mg/dL (70-110)
[2021-02-07] MEDS: insulin glargine 100 units/1 mL 10 UNIT SUBCUT (19:54)
[2021-02-07] MEDS: atorvastatin 40 mg Tablet 20 MG PO (19:54)
[2021-02-08] VITALS (37 sets, daily range): BP systolic 108–158; BP diastolic 50–103; PULSE 74–97; RESP 13–38; TEMP 36.4–37.1; O2SAT 88–96
[2021-02-08] MEDS: piperacillin-tazobactam 3.375 GM in sodium chloride 0.9% (plus) 50 ML IV ×3 (00:01→17:58)
[2021-02-08] MEDS: ipratropium-albuterol 3 mL Neb INHALATION ×4 (02:24→20:06)
[2021-02-08 06:03] LABS: Hematocrit 49.5 % (42.0-52.0); Hemoglobin 15.4 g/dL (11.7-16.6); Mean Corpuscular HGB Conc 31.1 g/dL (30.0-36.0); Mean Corpuscular Hemoglobin 29.6 pg (28.0-34.0); Mean Platelet Volume 9.6 fL (7.4-10.4); Platelet Count 301 10^3/cmm (130-400); Red Blood Count 5.21 10^6/uL (4.1-5.3); Red Cell Distribution Width 13.7 % (12.1-15.1); White Blood Count 13.9 10^3/uL (4.0-10.0)
[2021-02-08 06:21] LABS: D Dimer 10.34 ug/mIFEU (0-0.59)
[2021-02-08 06:34] LABS: Slide Review Slide Review Perform
[2021-02-08 06:36] LABS: Absolute Eosinophils 0.2 10^3/cmm (0.0-0.7); Absolute Neutrophil 9.7 10^3/cmm (1.4-6.5); Absolute Segmented Neutrophil 8.3 10/cmm (1.6-7.1); Band Neutrophils Absolute 1.4 10^3/cmm (0.0-1.2); Eosinophils 2 %; Lymphocytes 8 %; Lymphocytes Absolute 1.1 10^3/cmm (1.2-3.4); Monocytes Absolute 0.6 10^3/cmm (0.1-0.6); Platelet Estimate Normal (Normal); Segmented Neutrophils 60 %; Total Cells Counted 100 (0-100)
[2021-02-08 08:03] LABS: Glucose Point of Care 252 mg/dL (70-110)
[2021-02-08] MEDS: insulin glargine 100 units/1 mL 10 UNIT SUBCUT (08:10)
[2021-02-08] MEDS: dexamethasone 4 mg/mL INJ 6 MG IVP (08:11)
[2021-02-08] MEDS: levothyroxine 75 mcg Tablet PO (08:11)
--- NOTE | 2021-02-08 08:50 | PC.CHAP ---
Pastoral Care Encounter/Spiritual Assessment Type of Contact [] Declined route sales driver visit [] Patient/Family/Request visit [] Outpatient visit [] Follow-up visit [] Physician referral [] Code/Alert [x] Routine visit [] Staff referral [] Actively dying [] Patient sleeping [] Family support [] [] Out of room [] Palliative care [] [] Receiving care in room [] Pre-surgical visit [] Trauma [] Long length of stay [x] ICU visit [x] Other: isolated Relational/Emotional Strength [] Patient feels connected with others/family/visitors/staff [] Distress [] Loneliness/isolation [] Abandonment Spirituality of Patient [] Person of Renetta [] Attends Jehovah[employer] Witness of their [place] [] Believes in Prayer [] Reads Bible or Orthodox materials [] There are Spiritual issues to be addressed Leasing Associate Interventions [x] Prayer [] Active listening [] Non-anxious presence [] Spiritual/emotional support [] Crisis/trauma care [] Spiritual counseling [] Bereavement support [] Provided bereavement packet [] Provided Bible/devotional materials [] Provided toy/stuffed animal, coloring book to patient or family member [] Provided Communion [] Anointing/[place] [] Salvation [x] Completed spiritual assessment [] Other: Impact on Illness or Injury [] Angry [] Fearful [] Anxious [] Often cries [] Exhaustion [] Unable to work [] Unable to attend evangelical [] Unable to walk/stand [] Unable to read [] Unable to drive [] Unable to eat/drink [] Unable to sleep [] Unable to be with family [] Patient intubated [] Other: Summary Time spent with patient
--- NOTE | 2021-02-08 10:13 | PC.SOCIAL ---
Pg 2 IMM Explained to pt's , Lisa, via phone, Pg 2 IMM. No questions voiced. Provided pt care nurse a copy to give to pt. Initialed, dated, & timed a copy & placed in chart.
--- NOTE | 2021-02-08 11:41 | PM.PN ---
Subjective Subjective: Interval history: Kain feels like he is doing a little bit better. Less coughing. No chest discomfort. Medications: Reviewed: Yes Vitals/I&O/Wt Last Vital Signs Temp 97.6 F 02/08/21 07:00 Pulse 86 02/08/21 10:47 Resp 18 02/08/21 10:47 BP 108/73 02/08/21 09:00 Pulse Ox 95 02/08/21 10:47 02/07/21 02/08/21 02/08/21 22:59 06:59 14:59 Intake Total 1380 / 2270 200 / 2470 300 / 300 Output Total 3900 / 3900 900 / 4800 Balance -2520 / -1630 -700 / -2330 300 / 300 Weight last 48 hrs Weight 142.846 kg Weight 142.54 kg Physical Exam Narrative: EXAM NARRATIVE: General exam no distress. Tachypnea appears improved. Note the diuresis from yesterday at 2390ml neg Neck is supple no lymphadenopathy or thyromegaly Cardiovascular regular rate and rhythm, no murmur Lungs scattered rales without wheezing Abdomen is soft with positive bowel sounds. No obvious organomegaly Extremities no cyanosis clubbing. No significant edema Urinary Catheter Management^: Matos: Cath Placed During This Visit: yes Reason for Continuing Indwelling Catheter: Accurate Measurement of Urinary Output in Critically Ill Patients Urinary Catheter Date of Insertion: 02/05/21 Urinary Catheter Time of Insertion: 13:00 Data : 02/08/21 05:32 02/07/21 04:26 A&P Assessment and plan (1) Pneumonia due to COVID-19 virus: Patient with history of positive COVID-19 testing on 24 January according to . He was tested for Covid and apparently was negative at that time but retested on January 31 when admitted to [facility] and was positive at that time. He received dexamethasone, but I do not have any indication that he received remdesivir at that time. He has had evidence of multifocal pneumonia consistent with COVID-19. Currently on remdesivir. This would be his initial 5-day course. Benefit may be low Continue dexamethasone 6 mg IV daily Tocilizumab was given February 06. Nebs every 6 hours Note that he is vaccinated fully. Prophylactically we will continue Zosyn. MRSA PCR was negative. Await sputum culture. Procalcitonin was not elevated. gives vague history of possible gastroparesis as well so cannot rule out aspiration. However, I think bacterial pneumonitis is much less likely. Consider stopping this after 5 days total treatment. Try to balance fluid intake and output. Received Lasix yesterday 02/07 Markedly elevated dimer noted. Although no definite pulmonary embolism is seen, study was poor with motion and subsegmental pulmonary arteries were not visualized. Given the patient's markedly elevated dimer, history of hemoptysis I placed him on a heparin drip. With negative venous duplex this has been changed to Lovenox 40 mg twice daily. Appreciate pulmonary consultation He appears to be improving. Awaiting CMP and inflammatory levels today. Considering laboratory holiday tomorrow. Continue to wean oxygen Discontinue Matos Status: Acute (2) Acute respiratory failure with hypoxia: See above Status: Acute (3) Elevated brain natriuretic peptide (BNP) level: Troponin not significantly elevated Echocardiogram largely normal Status: Acute (4) Diabetes mellitus type II, non insulin dependent: Blood sugars have been more elevated lately with increased intake on diet. Lantus nightly. Dose will be increased Change sliding scale to aggressive Status: Acute (5) Hypothyroidism: TSH low. Thyroid hormone adjusted Status: Acute Qualifiers: Hypothyroidism type: acquired Qualified Code(s): E03.9 - Hypothyroidism, unspecified (6) Hypertension: Monitor Status: Acute Qualifiers: Hypertension type: essential hypertension Qualified Code(s): I10 - Essential (primary) hypertension (7) IBS (irritable bowel syndrome): Status: Acute Qualifiers: Irritable bowel syndrome type: with diarrhea Qualified Code(s): K58.0 - Irritable bowel syndrome with diarrhea (8) Non-Hodgkin's lymphoma in remission: No recent chemo Status: Acute Additional A&P Information Hypokalemia, awaiting measurement for today hyperlipidemia. Continue statin Multiple other medical problems as outlined in past medical history Full code Lovenox will suffice for DVT prophylaxis Attestations Medical Necessity Statement*: Needs continued hospitalization for close monitoring secondary to COVID-19 pneumonia requiring high flow oxygen. 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
[2021-02-08 11:44] LABS: Alanine Aminotransferase 16 U/L (0-41); Albumin Level 2.7 g/dL (3.5-5.2); Alkaline Phosphatase 85 IU/L (40-130); Blood Urea Nitrogen 30 mg/dL (8-23); C Reactive Protein 40.7 mg/L (0.0-4.9); Carbon Dioxide 30 mmol/L (22-29); Chloride 96 mmol/L (98-107); Ferritin 846 ng/mL (30-400); Globulin 3.1 g/dL (1.3-4.6); Glucose 279 mg/dL (65-115); Osmolality Calculated 296 mOsm/kg (285-295); Sodium 135 mmol/L (136-145); Total Bilirubin 0.5 mg/dL (0.15-1.2); Total Protein 5.8 g/dL (6.6-8.7)
[2021-02-08] MEDS: enoxaparin 40 mg/0.4 mL Syringe SUBCUT (11:51)
[2021-02-08 11:55] LABS: Glucose Point of Care 228 mg/dL (70-110)
[2021-02-08 12:02] LABS: Anion Gap 13.8 (5-19); Aspartate Amino Transferase 19 U/L (0-40); Potassium 4.8 mmol/L (3.5-5.1)
[2021-02-08 17:34] LABS: Glucose Point of Care 360 mg/dL (70-110)
[2021-02-08] MEDS: remdesivir 100 MG in sodium chloride 0.9% (100 ml) 100 ML IV (17:58)
[2021-02-08] MEDS: atorvastatin 40 mg Tablet 20 MG PO (20:18)
[2021-02-08] MEDS: insulin glargine 100 units/1 mL 20 UNIT SUBCUT (20:18)
[2021-02-08 20:44] LABS: Glucose Point of Care 289 mg/dL (70-110)
[2021-02-09] VITALS (30 sets, daily range): BP systolic 124–156; BP diastolic 58–92; PULSE 74–112; RESP 12–26; TEMP 36.6–37.2; O2SAT 85–97; BMI 43.2
[2021-02-09] MEDS: piperacillin-tazobactam 3.375 GM in sodium chloride 0.9% (plus) 50 ML IV ×3 (00:53→17:17)
[2021-02-09] MEDS: enoxaparin 40 mg/0.4 mL Syringe SUBCUT ×3 (00:53→23:55)
[2021-02-09] MEDS: ipratropium-albuterol 3 mL Neb INHALATION ×3 (03:33→15:25)
--- NOTE | 2021-02-09 06:30 | PC.NURSE ---
Shift Summary Patient had an uneventful night, remained on heated high flow at 45L and 45%. Left and right AC IV's are saline locked at this time. Left and right arm have skin tears which are covered with dressings. Patient had 530 mls of dark urine out from the urinal and 1 bowel movement. Patient had no complaints of pain all evening and slept well last night.
[2021-02-09] MEDS: calcium carbonate 500 mg Chew Tablet PO ×2 (07:48→13:43)
[2021-02-09] MEDS: dexamethasone 4 mg/mL INJ 6 MG IVP (08:15)
[2021-02-09] MEDS: levothyroxine 75 mcg Tablet PO (08:16)
[2021-02-09] MEDS: pantoprazole DR 40 mg Tablet PO (08:16)
--- NOTE | 2021-02-09 09:25 | P.PN_ITS ---
Subjective Subjective: Interval history: Kain reports he is doing okay. No chest pain. Some heartburn this morning. Medications: Reviewed: Yes Vitals/I&O/Wt Last Vital Signs Temp 97.9 F 02/09/21 01:00 Pulse 96 02/09/21 07:58 Resp 18 02/09/21 07:58 BP 149/62 02/09/21 06:00 Pulse Ox 94 02/09/21 07:58 02/08/21 02/09/21 02/09/21 22:59 06:59 14:59 Intake Total 700 / 1350 50 / 1400 Output Total 1600 / 1600 530 / 2130 Balance -900 / -250 -480 / -730 Weight last 48 hrs Weight 140.642 kg Weight 142.846 kg Physical Exam Narrative: EXAM NARRATIVE: General exam no distress. Appears improved Neck is supple no lymphadenopathy or thyromegaly Cardiovascular regular rate and rhythm, no murmur Lungs scattered rales without wheezing Abdomen is soft with positive bowel sounds. No obvious organomegaly Extremities no cyanosis clubbing. No significant edema Urinary Catheter Management^: Matos: Cath Placed During This Visit: yes, but has since been removed by the nurse Reason for Continuing Indwelling Catheter: Accurate Measurement of Urinary Output in Critically Ill Patients Urinary Catheter Date of Insertion: 02/05/21 Urinary Catheter Time of Insertion: 13:00 Date Urinary Catheter Removed: 02/08/21 Time Urinary Catheter Discontinued: 16:30 Data : 02/08/21 05:32 02/08/21 11:05 A&P Assessment and plan (1) Pneumonia due to COVID-19 virus: Patient with history of positive COVID-19 testing on 24 January according to . He was tested for Covid and apparently was negative at that time but retested on January 31 when admitted to [facility] and was positive at that time. He received dexamethasone, but I do not have any indication that he received remdesivir at that time. Symptom onset was January 22 He has had evidence of multifocal pneumonia consistent with COVID-19. Currently on remdesivir. This would be his initial 5-day course. Benefit may be low Continue dexamethasone 6 mg IV daily Tocilizumab was given February 06. Nebs every 6 hours Note that he is vaccinated fully. Prophylactically we will continue Zosyn. MRSA PCR was negative. Procalcitonin was not elevated. gives vague history of possible gastroparesis as well so cannot rule out aspiration. However, I think bacterial pneumonitis is much less likely. Consider stopping this after 5 days total treatment, which will be tomorrow. Try to balance fluid intake and output. Received Lasix last 02/07 Markedly elevated dimer noted. Although no definite pulmonary embolism is seen, study was poor with motion and subsegmental pulmonary arteries were not visualized. Given the patient's markedly elevated dimer, history of hemoptysis I placed him on a heparin drip. With negative venous duplex this has been changed to Lovenox 40 mg twice daily. Appreciate pulmonary consultation He appears to be improving. Repeat laboratory tomorrow Continue to wean oxygen Matos was discontinued February 10 Status: Acute (2) Acute respiratory failure with hypoxia: See above Status: Acute (3) Elevated brain natriuretic peptide (BNP) level: Troponin not significantly elevated Echocardiogram largely normal Status: Acute (4) Diabetes mellitus type II, non insulin dependent: Blood sugars have been more elevated lately with increased intake on diet. Lantus nightly. Aggressive sliding scale Status: Acute (5) Hypothyroidism: TSH low. Thyroid hormone adjusted Status: Acute Qualifiers: Hypothyroidism type: acquired Qualified Code(s): E03.9 - Hypothyroidism, unspecified (6) Hypertension: Monitor Status: Acute Qualifiers: Hypertension type: essential hypertension Qualified Code(s): I10 - E ssential (primary) hypertension (7) IBS (irritable bowel syndrome): Status: Acute Qualifiers: Irritable bowel syndrome type: with diarrhea Qualified Code(s): K58.0 - Irritable bowel syndrome with diarrhea (8) Non-Hodgkin's lymphoma in remission: No recent chemo Status: Acute Additional A&P Information Hypokalemia, previously supplemented hyperlipidemia. Continue statin Multiple other medical problems as outlined in past medical history Full code Lovenox will suffice for DVT prophylaxis Transfer out of ICU Attestations Medical Necessity Statement*: Needs continued hospitalization for supportive care and treatment secondary to COVID-19 pneumonia Coding Level of Care Code Acute District Agent for [facility] Diagnoses Pneumonia due to COVID-19 virus U07.1; J12.82 Acute respiratory failure with hypoxia J96.01 Elevated brain natriuretic peptide (BNP) level R79.89 Diabetes mellitus type II, non insulin dependent E11.9 Hypothyroidism E03.9 Hypothyroidism type: acquired Hypertension I10 Hypertension type: essential hypertension IBS (irritable bowel syndrome) K58.0 Irritable bowel syndrome type: with diarrhea Non-Hodgkin's lymphoma in remission C85.90
[2021-02-09 11:28] LABS: Glucose Point of Care 219 mg/dL (70-110)
--- NOTE | 2021-02-09 13:14 | PC.NUTR ---
Nutrition follow-up: Will discontinue Glucerna supplement at this time given po intakes improved to average of 90%. See RD assessments for further details.
[2021-02-09 17:17] LABS: Glucose Point of Care 250 mg/dL (70-110)
[2021-02-09] MEDS: remdesivir 100 MG in sodium chloride 0.9% (100 ml) 100 ML IV (17:17)
[2021-02-09 17:45] LABS: Glucose Point of Care 315 mg/dL (70-110)
[2021-02-09 20:04] LABS: Glucose Point of Care 311 mg/dL (70-110)
[2021-02-09] MEDS: atorvastatin 40 mg Tablet 20 MG PO (20:05)
[2021-02-09] MEDS: insulin glargine 100 units/1 mL 20 UNIT SUBCUT (20:06)
[2021-02-10] VITALS (22 sets, daily range): BP systolic 110–168; BP diastolic 63–118; PULSE 70–89; RESP 11–23; TEMP -12.7–36.9; O2SAT 81–96; BMI 43.9
[2021-02-10] MEDS: piperacillin-tazobactam 3.375 GM in sodium chloride 0.9% (plus) 50 ML IV ×2 (00:08→07:56)
[2021-02-10] MEDS: calcium carbonate 500 mg Chew Tablet PO (00:40)
[2021-02-10] MEDS: albuterol 8 gm MDI 2 PUFF INHALATION ×2 (02:55→09:36)
[2021-02-10 05:12] LABS: Basophils % 0.1 %; Eosinophils # 0.1 10^3/uL (0.0-0.8); Eosinophils % 0.8 %; Hematocrit 42.6 % (42.0-52.0); Hemoglobin 13.5 g/dL (11.7-16.6); Lymphocytes % 6.9 %; Mean Corpuscular HGB Conc 31.7 g/dL (30.0-36.0); Mean Corpuscular Hemoglobin 29.2 pg (28.0-34.0); Mean Corpuscular Volume 92.2 fL (80-94); Mean Platelet Volume 10.1 fL (7.4-10.4); Monocytes % 6.9 %; Neutrophils # 10.59 10^3/uL (1.8-7.7); Neutrophils % 70.6 %; Nucleated Red Blood Cells % 0 %; Platelet Count 274 10^3/cmm (130-400); Red Blood Count 4.62 10^6/uL (4.1-5.3); Red Cell Distribution Width 13.6 % (12.1-15.1)
[2021-02-10 05:24] LABS: Alanine Aminotransferase 24 U/L (0-41); Albumin Level 2.6 g/dL (3.5-5.2); Alkaline Phosphatase 72 IU/L (40-130); Aspartate Amino Transferase 28 U/L (0-40); Blood Urea Nitrogen 26 mg/dL (8-23); C Reactive Protein 14.2 mg/L (0.0-4.9); Calcium 8.6 mg/dL (8.5-10.5); Carbon Dioxide 31 mmol/L (22-29); Chloride 97 mmol/L (98-107); Ferritin 663 ng/mL (30-400); Globulin 2.5 g/dL (1.3-4.6); Glucose 150 mg/dL (65-115); Osmolality Calculated 288 mOsm/kg (285-295); Sodium 135 mmol/L (136-145); Total Bilirubin 0.5 mg/dL (0.15-1.2); Total Protein 5.1 g/dL (6.6-8.7)
[2021-02-10 05:25] LABS: Anion Gap 11.5 (5-19); Potassium 4.5 mmol/L (3.5-5.1)
[2021-02-10 05:30] LABS: D Dimer 8.53 ug/mIFEU (0-0.59)
[2021-02-10 05:31] LABS: Slide Review Slide Review Perform
--- NOTE | 2021-02-10 07:13 | PC.NURSE ---
Shift Summary Patient had an uneventful night. He remained on 9L NC, had 530 mls dark yellow urine out all evening, and is alert and oriented x4. Right AC IV was discontinued due to pain with saline flush catheter intact upon assessment, left AC IV site is saline locked at this time. Patient had no complaints of pain all evening. Redressed right arm wound, and removed bandage on the left arm wound. No wound bed was noted where bandage was taken off the left arm.
[2021-02-10] MEDS: pantoprazole DR 40 mg Tablet PO (07:56)
[2021-02-10] MEDS: dexamethasone 4 mg/mL INJ 6 MG IVP (07:56)
[2021-02-10] MEDS: levothyroxine 75 mcg Tablet PO (07:56)
[2021-02-10 08:23] LABS: Glucose Point of Care 220 mg/dL (70-110)
[2021-02-10] MEDS: enoxaparin 40 mg/0.4 mL Syringe SUBCUT ×2 (11:10→22:59)
--- NOTE | 2021-02-10 11:29 | PC.SOCIAL ---
IMM Update Pg.2 of IMM updated and reviewed with patient's over the phone. Verbalized understanding.
--- NOTE | 2021-02-10 15:38 | PM.PN ---
Subjective Subjective: Interval history: No new clinical events overnight. Patient was awaiting transferred to regular medical unit. Medications: Reviewed: Yes Vitals/I&O/Wt Last Vital Signs Temp 9 F L 02/10/21 12:00 Pulse 89 02/10/21 14:00 Resp 11 L 02/10/21 14:00 BP 133/75 02/10/21 15:00 Pulse Ox 90 02/10/21 14:00 02/10/21 02/10/21 02/10/21 06:59 14:59 22:59 Intake Total 250 / 2030 970 / 970 Output Total 400 / 400 Balance 250 / 770 570 / 570 Weight last 48 hrs Weight 142.938 kg Weight 140.642 kg Physical Exam Narrative: EXAM NARRATIVE: General exam no distress. Appears improved Neck is supple no lymphadenopathy or thyromegaly Cardiovascular regular rate and rhythm, no murmur Lungs scattered rales without wheezing Abdomen is soft with positive bowel sounds. No obvious organomegaly Extremities no cyanosis clubbing. No significant edema Urinary Catheter Management^: Matos: Cath Placed During This Visit: yes, but has since been removed by the nurse Reason for Continuing Indwelling Catheter: Accurate Measurement of Urinary Output in Critically Ill Patients Urinary Catheter Date of Insertion: 02/05/21 Urinary Catheter Time of Insertion: 13:00 Date Urinary Catheter Removed: 02/08/21 Time Urinary Catheter Discontinued: 16:30 Data : 02/10/21 04:30 02/10/21 04:30 Micro: Microbiology 02/05/21 08:22 Blood Culture - Final Blood NO GROWTH AFTER 5 DAYS 02/05/21 08:22 Blood Culture - Final Blood NO GROWTH AFTER 5 DAYS A&P Assessment and plan (1) Pneumonia due to COVID-19 virus: Patient with history of positive COVID-19 testing on 24 January according to . He was tested for Covid and apparently was negative at that time but retested on January 31 when admitted to [facility] and was positive at that time. He received dexamethasone, but I do not have any indication that he received remdesivir at that time. Symptom onset was January 22 He has had evidence of multifocal pneumonia consistent with COVID-19. Currently on remdesivir. This would be his initial 5-day course. Benefit may be low Continue dexamethasone 6 mg IV daily Tocilizumab was given February 06. Nebs every 6 hours Note that he is vaccinated fully. Prophylactically we will continue Zosyn. MRSA PCR was negative. Procalcitonin was not elevated. Will discontinue antibiotics -low suspicion of bacterial infection Lovenox 40 mg twice daily. Pulmonary on board. Continue to wean oxygen Status: Acute (2) Acute respiratory failure with hypoxia: See above Status: Acute (3) Elevated brain natriuretic peptide (BNP) level: Troponin not significantly elevated Echocardiogram largely normal Status: Acute (4) Diabetes mellitus type II, non insulin dependent: Blood sugars have been more elevated lately with increased intake on diet. Lantus nightly. Aggressive sliding scale Status: Acute (5) Hypothyroidism: TSH low. Thyroid hormone adjusted Status: Acute Qualifiers: Hypothyroidism type: acquired Qualified Code(s): E03.9 - Hypothyroidism, unspecified (6) Hypertension: Monitor Status: Acute Qualifiers: Hypertension type: essential hypertension Qualified Code(s): I10 - Essential (primary) hypertension (7) IBS (irritable bowel syndrome): Status: Acute Qualifiers: Irritable bowel syndrome type: with diarrhea Qualified Code(s): K58.0 - Irritable bowel syndrome with diarrhea (8) Non-Hodgkin's lymphoma in remission: No recent chemo Status: Acute Additional A&P Information Hypokalemia - Resolved. Hyperlipidemia. Continue statin Multiple other medical problems as outlined in past medical history Ok to transfer to [facility] Full code DVT prophylaxis - Lovenox Attestations Medical Necessity Statement*: Will require further hospitalizationFor management of COVID-19 pneumonia requiring supplemental oxygen Time Spent in Patient Care: Greater than 35 minutes (>than 50% of time spent in counselling and/or direct pt care on unit). Coding Level of Care Code Acute General Foreman for [facility] Diagnoses Pneumonia due to COVID-19 virus U07.1; J12.82 Acute respiratory failure with hypoxia J96.01 Elevated brain natriuretic peptide (BNP) level R79.89 Diabetes mellitus type II, non insulin dependent E11.9 Hypothyroidism E03.9 Hypothyroidism type: acquired Hypertension I10 Hypertension type: essential hypertension IBS (irritable bowel syndrome) K58.0 Irritable bowel syndrome type: with diarrhea Non-Hodgkin's lymphoma in remission C85.90
[2021-02-10 17:15] LABS: Glucose Point of Care 381 mg/dL (70-110)
[2021-02-10 17:15] LABS: Glucose Point of Care 259 mg/dL (70-110)
--- NOTE | 2021-02-10 18:40 | PC.NURSE ---
[facility]
[2021-02-10 21:29] LABS: Glucose Point of Care 320 mg/dL (70-110)
[2021-02-10] MEDS: atorvastatin 40 mg Tablet 20 MG PO (22:34)
[2021-02-10] MEDS: insulin glargine 100 units/1 mL 20 UNIT SUBCUT (22:35)
[2021-02-11] VITALS (17 sets, daily range): BP systolic 110–158; BP diastolic 67–84; PULSE 67–88; RESP 16–22; TEMP 36.3–36.8; O2SAT 86–98
[2021-02-11] MEDS: albuterol 8 gm MDI 2 PUFF INHALATION ×4 (02:33→20:09)
[2021-02-11 06:34] LABS: Basophils % 0.1 %; Eosinophils # 0.2 10^3/uL (0.0-0.8); Eosinophils % 1.2 %; Hematocrit 43.4 % (42.0-52.0); Hemoglobin 13.8 g/dL (11.7-16.6); Lymphocytes # 1.1 10^3/uL (0.8-4.8); Lymphocytes % 8.3 %; Mean Corpuscular HGB Conc 31.8 g/dL (30.0-36.0); Mean Corpuscular Hemoglobin 29.4 pg (28.0-34.0); Mean Corpuscular Volume 92.5 fL (80-94); Mean Platelet Volume 9.8 fL (7.4-10.4); Monocytes % 7.5 %; Neutrophils # 9.51 10^3/uL (1.8-7.7); Nucleated Red Blood Cells % 0 %; Platelet Count 255 10^3/cmm (130-400); Red Blood Count 4.69 10^6/uL (4.1-5.3); Red Cell Distribution Width 13.7 % (12.1-15.1); White Blood Count 13.6 10^3/uL (4.0-10.0)
[2021-02-11 06:41] LABS: Neutrophils % 82.9 %
[2021-02-11 06:49] LABS: Blood Urea Nitrogen 25 mg/dL (8-23); Calcium 8.2 mg/dL (8.5-10.5); Carbon Dioxide 34 mmol/L (22-29); Chloride 98 mmol/L (98-107); Glucose 92 mg/dL (65-115); Osmolality Calculated 290 mOsm/kg (285-295); Sodium 138 mmol/L (136-145)
[2021-02-11 07:01] LABS: Glucose Point of Care 97 mg/dL (70-110)
[2021-02-11] MEDS: pantoprazole DR 40 mg Tablet PO (08:51)
[2021-02-11] MEDS: dexamethasone 4 mg/mL INJ 6 MG IVP (08:51)
[2021-02-11] MEDS: levothyroxine 75 mcg Tablet PO (08:51)
[2021-02-11 12:05] LABS: Glucose Point of Care 288 mg/dL (70-110)
[2021-02-11] MEDS: enoxaparin 40 mg/0.4 mL Syringe SUBCUT (12:43)
--- NOTE | 2021-02-11 16:02 | P.PN_ITS ---
Subjective Subjective: Interval history: Patient was weaned to 4-5L via NC, No new clinical events overnight. . Medications: Reviewed: Yes Vitals/I&O/Wt Last Vital Signs Temp 98.2 F 02/11/21 12:00 Pulse 80 02/11/21 15:12 Resp 20 H 02/11/21 15:12 BP 136/78 02/11/21 12:00 Pulse Ox 95 02/11/21 15:12 02/11/21 02/11/21 02/11/21 06:59 14:59 22:59 Intake Total 360 / 360 Output Total 200 / 600 300 / 300 Balance -200 / 570 60 / 60 Weight last 48 hrs Weight 132.358 kg Weight 142.938 kg Physical Exam Narrative: EXAM NARRATIVE: General exam no distress. Appears improved Neck is supple no lymphadenopathy or thyromegaly Cardiovascular regular rate and rhythm, no murmur Lungs scattered rales without wheezing Abdomen is soft with positive bowel sounds. No obvious organomegaly Extremities no cyanosis clubbing. No significant edema Urinary Catheter Management^: Matos: Cath Placed During This Visit: yes, but has since been removed by the nurse Reason for Continuing Indwelling Catheter: Accurate Measurement of Urinary Output in Critically Ill Patients Urinary Catheter Date of Insertion: 02/05/21 Urinary Catheter Time of Insertion: 13:00 Date Urinary Catheter Removed: 02/08/21 Time Urinary Catheter Discontinued: 16:30 Data : 02/11/21 05:45 02/11/21 05:45 A&P Assessment and plan (1) Pneumonia due to COVID-19 virus: Patient with history of positive COVID-19 testing on 24 January according to . He was tested for Covid and apparently was negative at that time but retested on January 31 when admitted to [facility] and was positive at that time. He received dexamethasone, but I do not have any indication that he received remdesivir at that time. Symptom onset was January 22 He has had evidence of multifocal pneumonia consistent with COVID-19. Completed Remdesivir. Continue decadron s/p Tocilizumab on 02/06 S/p 5 days of zosyn MRSA PCR neg Wbc 13.6 Afebrile today D-dimer > 20 - Lovneox 40 mg SQ BID Negative for PE May consider d/c on eliquis 2.5 mg PO BID due to high risk Pulmonary on board. Continue to wean oxygen Pulmonary was previously consulted. Home o2 eval Status: Acute (2) Acute respiratory failure with hypoxia: See above Status: Acute (3) Elevated brain natriuretic peptide (BNP) level: Troponin not significantly elevated Echocardiogram largely normal - no triny wall motion abnormality Status: Acute (4) Diabetes mellitus type II, non insulin dependent: Blood sugars have been more elevated lately with increased intake on diet. Lantus nightly. Aggressive sliding scale Status: Acute (5) Hypothyroidism: TSH low. Thyroid hormone adjusted Status: Acute Qualifiers: Hypothyroidism type: acquired Qualified Code(s): E03.9 - Hypothyroidism, unspecified (6) Hypertension: Monitor Status: Acute Qualifiers: Hypertension type: essential hypertension Qualified Code(s): I10 - Essential (primary) hypertension (7) IBS (irritable bowel syndrome): Status: Acute Qualifiers: Irritable bowel syndrome type: with diarrhea Qualified Code(s): K58.0 - Irritable bowel syndrome with diarrhea (8) Non-Hodgkin's lymphoma in remission: No recent chemo Status: Acute Additional A&P Information Hypokalemia - Resolved. Hyperlipidemia. Continue statin Multiple other medical problems as outlined in past medical history Discharge planning DVT prophylaxis - Lovenox Attestations Medical Necessity Statement*: Possible DC later today otherwise continue ho spitalization for management of COVID-19 pneumonia with respiratory failure requiring oxygen Time Spent in Patient Care: Greater than 35 minutes (>than 50% of time spent in counselling and/or direct pt care on unit) . 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
--- NOTE | 2021-02-11 17:01 | PC.NURSE ---
notified Dr Clark that patient's blood sugar is 456.
[2021-02-11 17:05] LABS: Glucose Point of Care 456 mg/dL (70-110)
--- NOTE | 2021-02-11 17:12 | PC.NURSE ---
reported low 02 to the nurse
[2021-02-11 21:28] LABS: Glucose Point of Care 216 mg/dL (70-110)
[2021-02-11] MEDS: atorvastatin 40 mg Tablet 20 MG PO (21:50)
[2021-02-11] MEDS: insulin glargine 100 units/1 mL 20 UNIT SUBCUT (22:12)
[2021-02-12] VITALS (18 sets, daily range): BP systolic 109–126; BP diastolic 62–74; PULSE 71–88; RESP 18–24; TEMP 36.6–37.4; O2SAT 90–98
[2021-02-12] MEDS: enoxaparin 40 mg/0.4 mL Syringe SUBCUT ×2 (00:11→11:56)
[2021-02-12 02:39] LABS: Glucose Point of Care 291 mg/dL (70-110)
[2021-02-12] MEDS: albuterol 8 gm MDI 2 PUFF INHALATION ×4 (03:03→20:43)
--- NOTE | 2021-02-12 04:07 | PM.EVENT ---
Event Note Event Note: Rapid response was called secondary to patient having an acute vasovagal event going to the bathroom. He became less responsive, diaphoretic and hypotensive. He recovered shortly thereafter. Saturations dropped into the 60s with this event. It took a while for saturations to recover but they did. He insinuated that he would be agreeable to utilizing the bed miramontes in the future.
[2021-02-12 05:35] LABS: Basophils # 0.1 10^3/uL (0.0-0.1); Basophils % 0.8 %; Eosinophils # 0.1 10^3/uL (0.0-0.8); Eosinophils % 0.7 %; Hematocrit 45.2 % (42.0-52.0); Hemoglobin 14.3 g/dL (11.7-16.6); Lymphocytes # 0.9 10^3/uL (0.8-4.8); Lymphocytes % 6.5 %; Mean Corpuscular HGB Conc 31.6 g/dL (30.0-36.0); Mean Corpuscular Hemoglobin 29.4 pg (28.0-34.0); Monocytes # 0.9 10^3/uL (0.2-0.9); Monocytes % 6.9 %; Neutrophils # 10.08 10^3/uL (1.8-7.7); Neutrophils % 75.8 %; Nucleated Red Blood Cells % 0 %; Platelet Count 233 10^3/cmm (130-400); Red Blood Count 4.86 10^6/uL (4.1-5.3); Red Cell Distribution Width 13.4 % (12.1-15.1); White Blood Count 13.3 10^3/uL (4.0-10.0)
[2021-02-12 05:58] LABS: Anion Gap 10.5 (5-19); Blood Urea Nitrogen 23 mg/dL (8-23); Calcium 8.2 mg/dL (8.5-10.5); Carbon Dioxide 33 mmol/L (22-29); Chloride 99 mmol/L (98-107); Glucose 192 mg/dL (65-115); Osmolality Calculated 295 mOsm/kg (285-295); Potassium 4.5 mmol/L (3.5-5.1); Sodium 138 mmol/L (136-145)
[2021-02-12 06:13] LABS: Slide Review Slide Review Perform
[2021-02-12 06:49] LABS: Glucose Point of Care 180 mg/dL (70-110)
[2021-02-12] MEDS: FUROsemide 10 mg/mL SDV 2mL 20 MG IVP (08:20)
[2021-02-12] MEDS: pantoprazole DR 40 mg Tablet PO (08:21)
[2021-02-12] MEDS: dexamethasone 4 mg/mL INJ 6 MG IVP (08:21)
[2021-02-12] MEDS: levothyroxine 75 mcg Tablet PO (08:21)
[2021-02-12 11:17] LABS: Glucose Point of Care 295 mg/dL (70-110)
--- NOTE | 2021-02-12 13:00 | XRR_ITS ---
PROCEDURE INFORMATION: Exam: XR Chest Exam date and time: 02/12/2021 1:48 PM Age: 70 years old Clinical indication: Cough and shortness of breath. Follow-up COVID pneumonia. TECHNIQUE: Imaging protocol: XR of the chest. Views: 1 view. COMPARISON: CR (CHEST, ) 02/05/2021 5:49 AM FINDINGS: Lungs: There are extensive ground-glass and airspace opacities in the chest bilaterally that appear similar to slightly worsened when compared to prior. Pleural spaces: No pleural effusion.; No pneumothorax. Heart/Mediastinum: The cardiac silhouette is unchanged. No gross evidence of pneumomediastinum. Bones/joints: No gross fracture. XR/XR chest 1V portable 16200 IMPRESSION: There are extensive ground-glass and airspace opacities in the chest bilaterally that appear similar to slightly worsened when compared to prior.
--- NOTE | 2021-02-12 13:01 | PM.PN ---
Subjective Subjective: Interval history: Kain reports he thinks he overdid it yesterday. Events noted where hypoxemia occurred. He reports he is feeling a little bit better now. He acknowledges he is still weak. Medications: Reviewed: Yes Vitals/I&O/Wt Last Vital Signs Temp 99.4 F 02/12/21 11:48 Pulse 80 02/12/21 11:53 Resp 20 H 02/12/21 11:53 BP 112/69 02/12/21 11:48 Pulse Ox 95 02/12/21 11:53 02/11/21 02/12/21 02/12/21 22:59 06:59 14:59 Intake Total 980 / 980 Output Total 650 / 950 675 / 675 Balance -650 / -590 305 / 305 Weight last 48 hrs Weight 134.292 kg Weight 132.358 kg Physical Exam Narrative: EXAM NARRATIVE: General exam is no apparent distress Neck is supple no lymphadenopathy or thyromegaly Cardiovascular regular rate and rhythm without murmur Lungs few scattered crackles Abdomen soft positive bowel sounds Extremities no cyanosis clubbing or edema Urinary Catheter Management^: Matos: Cath Placed During This Visit: yes, but has since been removed by the nurse Reason for Continuing Indwelling Catheter: Accurate Measurement of Urinary Output in Critically Ill Patients Urinary Catheter Date of Insertion: 02/05/21 Urinary Catheter Time of Insertion: 13:00 Date Urinary Catheter Removed: 02/08/21 Time Urinary Catheter Discontinued: 16:30 Data : 02/12/21 05:17 02/12/21 05:17 A&P Assessment and plan (1) Pneumonia due to COVID-19 virus: Patient with history of positive COVID-19 testing on 24 January according to . He was tested for Covid and apparently was negative at that time but retested on January 31 when admitted to [facility] and was positive at that time. He received dexamethasone, but I do not have any indication that he received remdesivir at that time. Symptom onset was January 22 He has had evidence of multifocal pneumonia consistent with COVID-19. He has completed his course of remdesivir Continue dexamethasone 6 mg IV daily Tocilizumab was given February 06. Nebs every 6 hours Note that he is vaccinated fully. He received 5 days of Zosyn Try to balance fluid intake and output. Received Lasix last 02/07 Markedly elevated dimer noted. Although no definite pulmonary embolism is seen, study was poor with motion and subsegmental pulmonary arteries were not visualized. Given the patient's markedly elevated dimer, history of hemoptysis I placed him on a heparin drip. With negative venous duplex this has been changed to Lovenox 40 mg twice daily. Appreciate pulmonary consultation He had significant improvement, but worsened slightly yesterday requiring more oxygen Matos was discontinued February 10 Secondary to his worsening will recheck chest x-ray, procalcitonin level Lasix 20 mg IV x1 Status: Acute (2) Acute respiratory failure with hypoxia: See above Status: Acute (3) Elevated brain natriuretic peptide (BNP) level: Troponin not significantly elevated Echocardiogram largely normal Status: Acute (4) Diabetes mellitus type II, non insulin dependent: Blood sugars have been more elevated lately with increased intake on diet. Lantus nightly. Aggressive sliding scale Status: Acute (5) Hypothyroidism: TSH low. Thyroid hormone adjusted Status: Acute Qualifiers: Hypothyroidism type: acquired Qualified Code(s): E03.9 - Hypothyroidism, unspecified (6) Hypertension: Monitor Status: Acute Qualifiers: Hypertension type: essential hypertension Qualified Code(s): I10 - Essential (primary) hypertension (7) IBS (irritable bowel syndrome): Status: Acute Qualifiers: Irritable bowel syndrome type: with diarrhea Qualified Code(s): K58.0 - Irritable bowel syndrome with diarrhea (8) Non-Hodgkin's lymphoma in remission: No recent chemo Status: Acute Additional A&P Information Hypokalemia, previously supplemented hyperlipidemia. Continue statin Multiple other medical problems as outlined in past medical history Full code Lovenox will suffice for DVT prophylaxis Attestations Medical Necessity Statement*: Needs continued hospitalization for supportive care secondary to COVID-19 pneumonia. 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
[2021-02-12 13:03] LABS: Procalcitonin 0.04 ng/mL (0-0.5)
[2021-02-12 17:39] LABS: Glucose Point of Care 368 mg/dL (70-110)
[2021-02-12 20:53] LABS: Glucose Point of Care 385 mg/dL (70-110)
[2021-02-12] MEDS: atorvastatin 40 mg Tablet 20 MG PO (21:50)
[2021-02-12] MEDS: insulin glargine 100 units/1 mL 20 UNIT SUBCUT (21:51)
[2021-02-13] VITALS (15 sets, daily range): BP systolic 116–143; BP diastolic 68–107; PULSE 73–85; RESP 16–20; TEMP 36.6–37.2; O2SAT 90–96
[2021-02-13] MEDS: enoxaparin 40 mg/0.4 mL Syringe SUBCUT ×2 (01:49→12:22)
[2021-02-13] MEDS: albuterol 8 gm MDI 2 PUFF INHALATION ×4 (03:03→20:49)
[2021-02-13 06:28] LABS: Ferritin 590 ng/mL (30-400)
[2021-02-13 06:30] LABS: Alanine Aminotransferase 50 U/L (0-41); Albumin Level 2.8 g/dL (3.5-5.2); Alkaline Phosphatase 88 IU/L (40-130); Anion Gap 10.3 (5-19); Aspartate Amino Transferase 34 U/L (0-40); Blood Urea Nitrogen 23 mg/dL (8-23); C Reactive Protein 3.9 mg/L (0.0-4.9); Calcium 8.1 mg/dL (8.5-10.5); Carbon Dioxide 34 mmol/L (22-29); Chloride 98 mmol/L (98-107); Globulin 2.5 g/dL (1.3-4.6); Glucose 142 mg/dL (65-115); Hematocrit 42.2 % (42.0-52.0); Hemoglobin 13.4 g/dL (11.7-16.6); Mean Corpuscular HGB Conc 31.8 g/dL (30.0-36.0); Mean Corpuscular Hemoglobin 29.3 pg (28.0-34.0); Mean Corpuscular Volume 92.3 fL (80-94); Mean Platelet Volume 10.3 fL (7.4-10.4); Osmolality Calculated 292 mOsm/kg (285-295); Platelet Count 203 10^3/cmm (130-400); Potassium 4.3 mmol/L (3.5-5.1); Red Blood Count 4.57 10^6/uL (4.1-5.3); Red Cell Distribution Width 13.6 % (12.1-15.1); Sodium 138 mmol/L (136-145); Total Bilirubin 0.6 mg/dL (0.15-1.2); Total Protein 5.3 g/dL (6.6-8.7); White Blood Count 11.8 10^3/uL (4.0-10.0)
[2021-02-13 06:56] LABS: Glucose Point of Care 173 mg/dL (70-110)
[2021-02-13 06:59] LABS: Slide Review Slide Review Perform
[2021-02-13 07:01] LABS: Absolute Segmented Neutrophil 9.1 10/cmm (1.6-7.1); Band Neutrophils Absolute 1.2 10^3/cmm (0.0-1.2); Lymphocytes 5 %; Monocytes Absolute 0.6 10^3/cmm (0.1-0.6); Segmented Neutrophils 77 %; Total Cells Counted 100 (0-100)
[2021-02-13 07:02] LABS: Absolute Neutrophil 10.3 10^3/cmm (1.4-6.5); Eosinophils 0 %; Lymphocytes Absolute 0.6 10^3/cmm (1.2-3.4); Platelet Estimate Normal (Normal)
[2021-02-13] MEDS: pantoprazole DR 40 mg Tablet PO (08:41)
[2021-02-13] MEDS: levothyroxine 75 mcg Tablet PO (08:41)
[2021-02-13] MEDS: dexamethasone 4 mg/mL INJ 6 MG IVP (08:42)
[2021-02-13] MEDS: FUROsemide 40 mg Tablet PO (09:21)
[2021-02-13] MEDS: potassium chloride ER 20 mEq Tablet PO (09:21)
[2021-02-13 11:31] LABS: Glucose Point of Care 248 mg/dL (70-110)
--- NOTE | 2021-02-13 13:00 | PM.PN ---
Subjective Subjective: Interval history: Kain reports he feels okay today. Better than yesterday. No new complaints. Has been able to be weaned down to 8 L per high flow. Medications: Reviewed: Yes Vitals/I&O/Wt Last Vital Signs Temp 97.8 F 02/13/21 07:33 Pulse 81 02/13/21 09:18 Resp 18 02/13/21 09:14 BP 127/81 02/13/21 07:33 Pulse Ox 90 02/13/21 09:14 02/12/21 02/13/21 02/13/21 22:59 06:59 14:59 Intake Total 530 / 1510 50 / 1560 240 / 240 Output Total 325 / 1000 300 / 1300 300 / 300 Balance 205 / 510 -250 / 260 -60 / -60 Weight last 48 hrs Weight 135.533 kg Weight 134.292 kg Physical Exam Narrative: EXAM NARRATIVE: General exam is no apparent distress Neck is supple no lymphadenopathy or thyromegaly Cardiovascular regular rate and rhythm without murmur Lungs few scattered crackles Abdomen soft positive bowel sounds Extremities no cyanosis clubbing or edema Urinary Catheter Management^: Matos: Cath Placed During This Visit: yes, but has since been removed by the nurse Reason for Continuing Indwelling Catheter: Accurate Measurement of Urinary Output in Critically Ill Patients Urinary Catheter Date of Insertion: 02/05/21 Urinary Catheter Time of Insertion: 13:00 Date Urinary Catheter Removed: 02/08/21 Time Urinary Catheter Discontinued: 16:30 Data : 02/13/21 05:05 02/13/21 05:05 Micro: Microbiology 02/11/21 20:30 Gram Stain - Final Sputum - Expectorated Sputum Sputum Culture - Preliminary A&P Assessment and plan (1) Pneumonia due to COVID-19 virus: Patient with history of positive COVID-19 testing on 24 January according to . He was tested for Covid and apparently was negative at that time but retested on January 31 when admitted to [facility] and was positive at that time. He received dexamethasone, but I do not have any indication that he received remdesivir at that time. Symptom onset was January 22 He has had evidence of multifocal pneumonia consistent with COVID-19. He has completed his course of remdesivir Continue dexamethasone 6 mg IV daily. Consider discontinuing after day 10 Tocilizumab was given February 06. Nebs every 6 hours Note that he is vaccinated fully. He received 5 days of Zosyn. Cefepime was initiated yesterday as he seemed to have some worsening overnight, associated with a low-grade temperature. X-ray was checked and slightly worse but this may have been just progression of his viral pneumonia changes from admission. Procalcitonin level was checked and still normal. Today we will initiate Lasix 40 mg once daily orally Markedly elevated dimer noted. Although no definite pulmonary embolism is seen, study was poor with motion and subsegmental pulmonary arteries were not visualized. Given the patient's markedly elevated dimer, history of hemoptysis I placed him on a heparin drip. With negative venous duplex this has been changed to Lovenox 40 mg twice daily. Appreciate pulmonary consultation Matos was discontinued February 10 Status: Acute (2) Acute respiratory failure with hypoxia: See above Status: Acute (3) Elevated brain natriuretic peptide (BNP) level: Troponin not significantly elevated Echocardiogram largely normal Status: Acute (4) Diabetes mellitus type II, non insulin dependent: Blood sugars have been more elevated lately with increased intake on diet. Lantus nightly. Aggressive sliding scale Status: Acute (5) Hypothyroidism: TSH low. Thyroid hormone adjusted Status: Acute Qualifiers: Hypothyroidism type: acquired Qualified Code(s): E03.9 - Hypothyroidism, unspecified (6) Hypertension: Monitor Status: Acute Qualifiers: Hypertension type: essential hypertension Qualified Code(s): I10 - Essential (primary) hypertension (7) IBS (irritable bowel syndrome): Status: Acute Qualifiers: Irritable bowel syndrome type: with diarrhea Qualified Code(s): K58.0 - Irritable bowel syndrome with diarrhea (8) Non-Hodgkin's lymphoma in remission: No recent chemo Status: Acute Additional A&P Information Hypokalemia, previously supplemented hyperlipidemia. Continue statin Multiple other medical problems as outlined in past medical history Full code Lovenox will suffice for DVT prophylaxis Laboratory holiday tomorrow. 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
[2021-02-13] MEDS: cefepime 2,000 MG in sodium chloride 0.9% (plus) 50 ML 100 MG IV (17:46)
[2021-02-13 21:12] LABS: Glucose Point of Care 306 mg/dL (70-110)
[2021-02-13] MEDS: atorvastatin 40 mg Tablet 20 MG PO (22:08)
[2021-02-13] MEDS: insulin glargine 100 units/1 mL 20 UNIT SUBCUT (22:09)
[2021-02-14] VITALS (17 sets, daily range): BP systolic 101–155; BP diastolic 68–81; PULSE 72–86; RESP 16–20; TEMP 36.6–36.8; O2SAT 93–96
[2021-02-14] MEDS: enoxaparin 40 mg/0.4 mL Syringe SUBCUT ×2 (00:54→11:15)
[2021-02-14] MEDS: albuterol 8 gm MDI 2 PUFF INHALATION ×4 (03:09→20:05)
[2021-02-14] MEDS: cefepime 2,000 MG in sodium chloride 0.9% (plus) 50 ML 100 MG IV (05:55)
[2021-02-14 06:26] LABS: Glucose Point of Care 126 mg/dL (70-110)
[2021-02-14] MEDS: potassium chloride ER 20 mEq Tablet PO (08:30)
[2021-02-14] MEDS: levothyroxine 75 mcg Tablet PO (08:30)
[2021-02-14] MEDS: FUROsemide 40 mg Tablet PO (08:31)
[2021-02-14] MEDS: pantoprazole DR 40 mg Tablet PO (08:31)
[2021-02-14] MEDS: dexamethasone 4 mg/mL INJ 6 MG IVP (08:31)
[2021-02-14 11:15] LABS: Glucose Point of Care 277 mg/dL (70-110)
--- NOTE | 2021-02-14 12:20 | PM.PN ---
Subjective Subjective: Interval history: Kain reports he is doing okay today. Breathing is a little bit better. No chest discomfort. Medications: Reviewed: Yes Vitals/I&O/Wt Last Vital Signs Temp 98.1 F 02/14/21 08:44 Pulse 79 02/14/21 08:44 Resp 17 02/14/21 08:44 BP 146/79 02/14/21 08:44 Pulse Ox 95 02/14/21 10:02 02/13/21 02/14/21 02/14/21 22:59 06:59 14:59 Intake Total 290 / 530 50 / 580 Output Total 1040 / 1840 635 / 2475 Balance -750 / -1310 -585 / -1895 Weight last 48 hrs Weight 133.855 kg Weight 135.533 kg Physical Exam Narrative: EXAM NARRATIVE: General exam is no apparent distress Neck is supple no lymphadenopathy or thyromegaly Cardiovascular regular rate and rhythm without murmur Lungs few scattered crackles Abdomen soft positive bowel sounds Extremities no cyanosis clubbing or edema Urinary Catheter Management^: Matos: Cath Placed During This Visit: yes, but has since been removed by the nurse Reason for Continuing Indwelling Catheter: Accurate Measurement of Urinary Output in Critically Ill Patients Urinary Catheter Date of Insertion: 02/05/21 Urinary Catheter Time of Insertion: 13:00 Date Urinary Catheter Removed: 02/08/21 Time Urinary Catheter Discontinued: 16:30 Data : 02/13/21 05:05 02/13/21 05:05 Micro: Microbiology 02/11/21 20:30 Gram Stain - Final Sputum - Expectorated Sputum Sputum Culture - Preliminary A&P Assessment and plan (1) Pneumonia due to COVID-19 virus: Patient with history of positive COVID-19 testing on 24 January according to . He was tested for Covid and apparently was negative at that time but retested on January 31 when admitted to [facility] and was positive at that time. He received dexamethasone, but I do not have any indication that he received remdesivir at that time. Symptom onset was January 22 He has had evidence of multifocal pneumonia consistent with COVID-19. He has completed his course of remdesivir Continue dexamethasone 6 mg IV daily. Consider discontinuing after day 10 Tocilizumab was given February 06. Nebs every 6 hours Note that he is vaccinated fully. He received 5 days of Zosyn. Cefepime was initiated on the as he seemed to have some worsening overnight, associated with a low-grade temperature. X-ray was checked and slightly worse but this may have been just progression of his viral pneumonia changes from admission. Procalcitonin level was checked and still normal. Continue cefepime currently Continue Lasix 40 mg daily Markedly elevated dimer noted. Although no definite pulmonary embolism is seen, study was poor with motion and subsegmental pulmonary arteries were not visualized. Given the patient's markedly elevated dimer, history of hemoptysis I placed him on a heparin drip. With negative venous duplex this has been changed to Lovenox 40 mg twice daily. Appreciate pulmonary consultation Matos was discontinued February 10 Status: Acute (2) Acute respiratory failure with hypoxia: See above Status: Acute (3) Elevated brain natriuretic peptide (BNP) level: Troponin not significantly elevated Echocardiogram largely normal Status: Acute (4) Diabetes mellitus type II, non insulin dependent: Blood sugars have been more elevated lately with increased intake on diet. Lantus nightly. Aggressive sliding scale Status: Acute (5) Hypothyroidism: TSH low. Thyroid hormone adjusted Status: Acute Qualifiers: Hypothyroidism type: acquired Qualified Code(s): E03.9 - Hypothyroidism, unspecified (6) Hypertension: Monitor Status: Acute Qualifiers: Hypertension type: essential hypertension Qualified Code(s): I10 - Essential (primary) hypertension (7) IBS (irritable bowel syndrome): Status: Acute Qualifiers: Irritable bowel syndrome type: with diarrhea Qualified Code(s): K58.0 - Irritable bowel syndrome with diarrhea (8) Non-Hodgkin's lymphoma in remission: No recent chemo Status: Acute Additional A&P Information Hypokalemia, previously supplemented hyperlipidemia. Continue statin Multiple other medical problems as outlined in past medical history Full code Lovenox will suffice for DVT prophylaxis Laboratory tomorrow Working on skilled care placement. Attestations Medical Necessity Statement*: Needs continued hospitalization for supportive care secondary to COVID-19 pneumonia. 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
--- NOTE | 2021-02-14 13:42 | PC.SOCIAL ---
IMM Update Pg.2 of IMM updated and reviewed with patient's over the phone. Verbalized understanding.
[2021-02-14 17:15] LABS: Glucose Point of Care 318 mg/dL (70-110)
[2021-02-14 20:53] LABS: Glucose Point of Care 301 mg/dL (70-110)
[2021-02-14] MEDS: atorvastatin 40 mg Tablet 20 MG PO (21:36)
[2021-02-14] MEDS: insulin glargine 100 units/1 mL 20 UNIT SUBCUT (21:37)
[2021-02-15] VITALS (17 sets, daily range): BP systolic 105–125; BP diastolic 69–80; PULSE 71–88; RESP 17–22; TEMP 35.7–36.7; O2SAT 90–98
[2021-02-15] MEDS: enoxaparin 40 mg/0.4 mL Syringe SUBCUT ×2 (00:58→11:05)
[2021-02-15 06:34] LABS: Glucose Point of Care 139 mg/dL (70-110)
[2021-02-15 07:20] LABS: Basophils # 0.1 10^3/uL (0.0-0.1); Basophils % 0.6 %; Eosinophils # 0.1 10^3/uL (0.0-0.8); Eosinophils % 0.9 %; Hematocrit 44.5 % (42.0-52.0); Hemoglobin 14.3 g/dL (11.7-16.6); Lymphocytes % 10.9 %; Mean Corpuscular HGB Conc 32.1 g/dL (30.0-36.0); Mean Corpuscular Hemoglobin 29.9 pg (28.0-34.0); Mean Corpuscular Volume 92.9 fL (80-94); Mean Platelet Volume 9.9 fL (7.4-10.4); Monocytes # 0.8 10^3/uL (0.2-0.9); Monocytes % 9.2 %; Neutrophils # 6.57 10^3/uL (1.8-7.7); Neutrophils % 74.3 %; Nucleated Red Blood Cells % 0 %; Platelet Count 155 10^3/cmm (130-400); Red Blood Count 4.79 10^6/uL (4.1-5.3); Red Cell Distribution Width 13.6 % (12.1-15.1); White Blood Count 8.8 10^3/uL (4.0-10.0)
[2021-02-15 07:43] LABS: Alanine Aminotransferase 61 U/L (0-41); Alkaline Phosphatase 81 IU/L (40-130); Anion Gap 10.2 (5-19); Aspartate Amino Transferase 38 U/L (0-40); Blood Urea Nitrogen 23 mg/dL (8-23); Carbon Dioxide 34 mmol/L (22-29); Chloride 98 mmol/L (98-107); Globulin 2.5 g/dL (1.3-4.6); Glucose 135 mg/dL (65-115); Osmolality Calculated 292 mOsm/kg (285-295); Potassium 4.2 mmol/L (3.5-5.1); Sodium 138 mmol/L (136-145); Total Bilirubin 0.6 mg/dL (0.15-1.2); Total Protein 5.5 g/dL (6.6-8.7)
[2021-02-15] MEDS: albuterol 8 gm MDI 2 PUFF INHALATION ×3 (08:09→20:16)
[2021-02-15] MEDS: dexamethasone 4 mg/mL INJ 6 MG IVP (08:22)
[2021-02-15] MEDS: potassium chloride ER 20 mEq Tablet PO (08:23)
[2021-02-15] MEDS: pantoprazole DR 40 mg Tablet PO (08:23)
[2021-02-15] MEDS: levothyroxine 75 mcg Tablet PO (08:23)
--- NOTE | 2021-02-15 09:00 | PC.NURSE ---
0735 COMPLETE LINEN CHANGE DONE.
[2021-02-15] MEDS: LORazepam 0.5 mg Tablet PO (11:05)
[2021-02-15 11:46] LABS: Glucose Point of Care 339 mg/dL (70-110)
--- NOTE | 2021-02-15 14:23 | PM.PN ---
Subjective Subjective: Interval history: Kain got short of breath when he went to the bathroom. Oxygen had to be increased for a while. He felt weak in the knees and thought he might fall. We discussed fall precautions. Medications: Reviewed: Yes Vitals/I&O/Wt Last Vital Signs Temp 97.0 F L 02/15/21 11:44 Pulse 76 02/15/21 11:44 Resp 18 02/15/21 11:44 BP 105/69 02/15/21 11:44 Pulse Ox 95 02/15/21 11:44 02/14/21 02/15/21 02/15/21 22:59 06:59 14:59 Intake Total 570 / 1050 460 / 1510 840 / 840 Output Total 1295 / 1575 150 / 1725 450 / 450 Balance -725 / -525 310 / -215 390 / 390 Weight last 48 hrs Weight 131.995 kg Weight 133.855 kg Physical Exam Narrative: EXAM NARRATIVE: General exam is no apparent distress Neck is supple no lymphadenopathy or thyromegaly Cardiovascular regular rate and rhythm without murmur Lungs few scattered crackles Abdomen soft positive bowel sounds Extremities no cyanosis clubbing or edema Urinary Catheter Management^: Matos: Cath Placed During This Visit: yes, but has since been removed by the nurse Reason for Continuing Indwelling Catheter: Accurate Measurement of Urinary Output in Critically Ill Patients Urinary Catheter Date of Insertion: 02/05/21 Urinary Catheter Time of Insertion: 13:00 Date Urinary Catheter Removed: 02/08/21 Time Urinary Catheter Discontinued: 16:30 Data : 02/15/21 06:48 02/15/21 06:48 Micro: Microbiology 02/11/21 20:30 Gram Stain - Final Sputum - Expectorated Sputum Sputum Culture - Final A&P Assessment and plan (1) Pneumonia due to COVID-19 virus: Patient with history of positive COVID-19 testing on 24 January according to . He was tested for Covid and apparently was negative at that time but retested on January 31 when admitted to [facility] and was positive at that time. He received dexamethasone, but I do not have any indication that he received remdesivir at that time. Symptom onset was January 22 He has had evidence of multifocal pneumonia consistent with COVID-19. He has completed his course of remdesivir Continue dexamethasone 6 mg IV daily. Consider discontinuing after day 10 Tocilizumab was given February 06. Nebs every 6 hours Note that he is vaccinated fully. He received 5 days of Zosyn. Cefepime was initiated on the as he seemed to have some worsening overnight, associated with a low-grade temperature. X-ray was checked and slightly worse but this may have been just progression of his viral pneumonia changes from admission. Procalcitonin level was checked and still normal. Continue cefepime currently Secondary to some dizziness when he got up, will hold Lasix today and reinitiate tomorrow at 20 mg daily Markedly elevated dimer noted. Although no definite pulmonary embolism is seen, study was poor with motion and subsegmental pulmonary arteries were not visualized. Given the patient's markedly elevated dimer, history of hemoptysis I placed him on a heparin drip. With negative venous duplex this has been changed to Lovenox 40 mg twice daily. I will transition him to Eliquis 2.5 mg twice daily. He will continue this for at least a month outpatient. I discussed the risks and benefits with him in detail. Appreciate pulmonary consultation Matos was discontinued February 10 Status: Acute (2) Acute respiratory failure with hypoxia: See above Status: Acute (3) Elevated brain natriuretic peptide (BNP) level: Troponin not significantly elevated Echocardiogram largely normal Status: Acute (4) Diabetes mellitus type II, non insulin dependent: Blood sugars have been more elevated lately with increased intake on diet. Lantus nightly. Aggressive sliding scale Status: Acute (5) Hypothyroidism: TSH low. Thyroid hormone adjusted Status: Acute Qualifiers: Hypothyroidism type: acquired Qualified Code(s): E03.9 - Hypothyroidism, unspecified (6) Hypertension: Monitor Status: Acute Qualifiers: Hypertension type: essential hypertension Qualified Code(s): I10 - Essential (primary) hypertension (7) IBS (irritable bowel syndrome): Status: Acute Qualifiers: Irritable bowel syndrome type: with diarrhea Qualified Code(s): K58.0 - Irritable bowel syndrome with diarrhea (8) Non-Hodgkin's lymphoma in remission: No recent chemo Status: Acute Additional A&P Information Hypokalemia, previously supplemented hyperlipidemia. Continue statin Multiple other medical problems as outlined in past medical history Full code Eliquis will serve for DVT prophylaxis Working on skilled care placement. Attestations Medical Necessity Statement*: Needs continued hospitalization for close monitoring secondary to COVID-19 pneumonia, on high amount of oxygen. Possible discharge to assisted tomorrow. 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
[2021-02-15 16:46] LABS: Glucose Point of Care 259 mg/dL (70-110)
[2021-02-15] MEDS: neomycin-poly-bacitracin oint 28 gm 1 APPLIC TOPICAL (17:44)
[2021-02-15 20:27] LABS: Glucose Point of Care 256 mg/dL (70-110)
[2021-02-15] MEDS: atorvastatin 40 mg Tablet 20 MG PO (21:55)
[2021-02-15] MEDS: apixaban 5 mg Tablet 2.5 MG PO (21:56)
[2021-02-15] MEDS: insulin glargine 100 units/1 mL 20 UNIT SUBCUT (21:56)
[2021-02-16] VITALS (8 sets, daily range): BP systolic 104–146; BP diastolic 65–72; PULSE 63–89; RESP 16–18; TEMP 36.5–37.2; O2SAT 90–96
[2021-02-16] MEDS: albuterol 8 gm MDI 2 PUFF INHALATION ×2 (02:21→09:41)
[2021-02-16 06:18] LABS: Glucose Point of Care 147 mg/dL (70-110)
--- NOTE | 2021-02-16 08:58 | P.DS_ITS ---
Discharge Providers Date of Admission: 02/05/21 12:24 Date of Discharge: February 16, 2021 Attending Provider at Admission: Sanjay Terrazas MD Attending Provider at Discharge: Sanjay Terrazas MD Primary Care Provider: Alvin Osei MD Diagnoses at Discharge Discharge Diagnosis (1) Pneumonia due to COVID-19 virus: Status: Acute (2) Acute respiratory failure with hypoxia: Status: Acute (3) Elevated brain natriuretic peptide (BNP) level: Status: Acute (4) Diabetes mellitus type II, non insulin dependent: Status: Acute (5) Hypothyroidism: Status: Acute Qualifiers: Hypothyroidism type: acquired Qualified Code(s): E03.9 - Hypothyroidism, unspecified (6) Hypertension: Status: Acute Qualifiers: Hypertension type: essential hypertension Qualified Code(s): I10 - Essential (primary) hypertension (7) IBS (irritable bowel syndrome): Status: Acute Qualifiers: Irritable bowel syndrome type: with diarrhea Qualified Code(s): K58.0 - Irritable bowel syndrome with diarrhea (8) Non-Hodgkin's lymphoma in remission: Status: Acute Reason for Visit Reason for Visit: fall,dizzy,nausea,sob Hospital Course Hospital Course Kain is a 70-year-old white male vaccinated patient who presented with COVID-19 pneumonia, acute respiratory failure. He required BiPAP as well as high flow oxygen. He received remdesivir for 5 days, dexamethasone, 1 dose of Tocilizumab. He received broad-spectrum antibiotics while in the hospital. Thyroid testing indicated need for dosage decrease which was performed. During his entire hospital course he had gradual improvement, to where he was down to 4 to 6 L per nasal cannula on February 16 and ready for rehabilitation. He has been working with rehabilitation for multiple days and doing well. However, he has significant weakness secondary to his illness that will require rehabilitation prior to going home. Other studies done in the hospital included venous duplex and CTA which demonstrated no evidence of DVT or pulmonary emboli. Echocardiogram was performed while in the hospital which demonstrated normal valves, normal ejection fraction. He will finish up 3 more days lower dose dexamethasone, 30 days of Eliquis for which I discussed the risks and benefits. Oxygen should be weaned as tolerated. Physical Exam Narrative: EXAM NARRATIVE: General exam no apparent distress Neck is supple no lymphadenopathy or thyromegaly Cardiovascular regular rate and rhythm without murmur Lungs a few scattered crackles Abdomen is soft with positive bowel sounds Extremities no cyanosis clubbing or edema Urinary Catheter Management^: Matos: Cath Placed During This Visit: yes, but has since been removed by the nurse Reason for Continuing Indwelling Catheter: Accurate Measurement of Urinary Output in Critically Ill Patients Urinary Catheter Date of Insertion: 02/05/21 Urinary Catheter Time of Insertion: 13:00 Date Urinary Catheter Removed: 02/08/21 Time Urinary Catheter Discontinued: 16:30 Discharge Data Data Completed and Pending: Completed Studies During Hospitalization Category Date Time Status CT angio chest 71 275 Urgent Cat Scan 02/05/21 09:15 Completed XR chest 1V paul ble [id number] Routine Exams 02/12/21 13:00 Completed XR chest 1V paul ble [id number] Stat Exams 02/05/21 05:11 [place] [id number] Routin e Ultrasound 02/06/21 15:47 Completed CV. echo complete * [id number] Routine Ultrasound 02/06/21 15:47 Completed Labs from last 24 hours 02/16/21 02/15/21 02/15/21 06:05 20:19 16:44 POC Glucose 147 H 256 H 259 H 02/15/21 11:41 POC Glucose 339 H Vitals: Last Vital Signs Temp 98.7 F 02/16/21 08:00 Pulse 73 02/16/21 08:00 Resp 18 02/16/21 08:00 BP 146/72 02/16/21 08:00 Pulse Ox 96 02/16/21 08:00 Discharge Plan Discharge Patient Disposition: [facility] Condition: Stable Prescriptions: New Lantus U-100 Insulin 100 unit/mL Solution 20 unit SUBCUT BEDTIME Qty: 10 RF: 0 pantoprazole 40 mg Tablet,Delayed Release (Dr/Ec) 40 mg PO DAILY Qty: 30 RF: 0 albuterol sulfate [Ventolin HFA] 90 mcg/actuation Hfa Aerosol Inhaler 2 puff inhalation Q6H.RESPIRATORY Qty: 1 RF: 0 Eliquis 5 mg Tablet 2.5 mg PO BID@0900,2100 Qty: 60 RF: 0 dexamethasone 4 mg Tablet 4 mg PO DAILY Qty: 3 RF: 0 levothyroxine 75 mcg Tablet 75 mcg PO DAILY Qty: 30 RF: 0 furosemide 20 mg Tablet 20 mg PO DAILY@0800 Qty: 30 RF: 0 potassium chloride 10 mEq capsule, extended release 10 meq PO DAILY Qty: 30 RF: 0 Continued lovastatin 40 mg tablet 40 mg PO BEDTIME RF: 0 cetirizine [Zyrtec] 10 mg tablet 10 mg PO QAM RF: 0 Victoza 3-Amandeep 0.6 mg/0.1 mL (18 mg/3 mL) pen injector 1.8 mg SUBCUT QAM RF: 0 Jardiance 25 mg tablet 25 mg PO QAM RF: 0 ketoconazole 2 % shampoo 1 applic TOPICAL . DIRECTED RF: 0 Flonase 50 mcg/actuation [place],Suspension 2 spray INTRANASAL QAM RF: 0 Vitamin C 1 tab PO DAILY RF: 0 Vitamin D3 1 tab PO DAILY RF: 0 zinc 1 tab PO DAILY RF: 0 Discontinued levothyroxine 88 mcg tablet 88 mcg PO QAM RF: 0 Actos 15 mg tablet 15 mg PO QAM RF: 0 sildenafil 50 mg tablet 50 mg PO DAILY PRN (Reason: see pharmacy comments) RF: 0 tizanidine 4 mg Tablet 4 mg PO TID PRN (Reason: Muscle Spasm) RF: 0 amoxicillin-pot clavulanate 875-125 mg tablet 1 tab PO BID RF: 0 Elderberry 200 mg Capsule 200 mg PO DAILY RF: 0 Discharge Orders: Discharge Order (Routine); Ordered 02/16/21 Ordered By: Sanjay Terrazas Other Ambulatory Orders: DME: Alessio (Order) Location: None Selected Ordered By: Sanjay Terrazas Referrals: Alvin Osei MD [Primary Care Provider] - Discharge Diet: Cardiac and Diabetic Discharge Activity: Increase activity as tolerated Activity Restrictions/Additional Instructions: Oxygen 6 L per nasal cannula, titrate for sat greater than or equal to 92% TSH in 6 weeks BMP in 4 days Dexamethasone for 3 more days as noted Eliquis for 30 days total Follow-up with primary care provider at [facility] in 3 to 5 days Discharge Attestations Time Spent in Discharge Care*: greater than 30 min Quality Metrics Clinical Quality Measures During this hospital stay, did patient experience: None Coding Level of Care Code Acute Chg FW DC note Diagnoses Pneumonia due to COVID-19 virus U07.1; J12.82 Acute respiratory failure with hypoxia J96.01 Elevated brain natriuretic peptide (BNP) level R79.89 Diabetes mellitus type II, non insulin dependent E11.9 Hypothyroidism E03.9 Hypothyroidism type: acquired Hypertension I10 Hypertension type: essential hypertension IBS (irritable bowel syndrome) K58.0 Irritable bowel syndrome type: with diarrhea Non-Hodgkin's lymphoma in remission C85.90
[2021-02-16] MEDS: apixaban 5 mg Tablet 2.5 MG PO (09:09)
[2021-02-16] MEDS: FUROsemide 20 mg Tablet PO (09:09)
[2021-02-16] MEDS: potassium chloride ER 20 mEq Tablet PO (09:10)
[2021-02-16] MEDS: dexamethasone 4 mg Tablet PO (09:10)
[2021-02-16] MEDS: levothyroxine 75 mcg Tablet PO (09:10)
[2021-02-16] MEDS: pantoprazole DR 40 mg Tablet PO (09:10)
--- NOTE | 2021-02-16 09:18 | PC.SOCIAL ---
IMM Update Pg.2 of IMM updated and reviewed with patient. Verbalized understanding. Copy provided. Initialed, dated and timed and placed in chart.
[2021-02-16 13:12] LABS: Glucose Point of Care 215 mg/dL (70-110)
== END 2021-02-16 14:51 | disposition skilled nursing facility (03) | DRG 177 ==
LOC: ER 12:26 → ICU 13:38 → MEDSURG 02-10 17:32
PROVIDERS: Emergency Medicine; Hospitalist; Admitting Provider Internal Medicine; Emergency Provider Family Medicine; PCP Internal Medicine; Visit Provider Internal Medicine
DX: U07.1 COVID-19 (principal); J12.82 Pneumonia due to coronavirus disease 2019; J80 Acute respiratory distress syndrome; Z68.42 Body mass index [BMI] 45.0-49.9, adult; Z85.72 Personal history of non-Hodgkin lymphomas; E11.43 Type 2 diabetes mellitus with diabetic autonomic (poly)neuropathy; K31.84 Gastroparesis; K57.90 Diverticulosis of intestine, part unspecified, without perforation or abscess without bleeding; Z87.891 Personal history of nicotine dependence; E03.9 Hypothyroidism, unspecified; I10 Essential (primary) hypertension; K58.0 Irritable bowel syndrome with diarrhea; E78.5 Hyperlipidemia, unspecified; Z92.21 Personal history of antineoplastic chemotherapy; E66.01 Morbid (severe) obesity due to excess calories; E87.6 Hypokalemia; Z79.4 Long term (current) use of insulin; I95.9 Hypotension, unspecified
CPT/HCPCS: 36415; 36416; 36600; 51702; 71045; 71275; 80048; 80053; 81001; 82728; 82803; 82962; 83605; 83735; 83880; 84145; 84443; 84484; 85007; 85025; 85378; 85384; 85610; 85730; 86140; 87040; 87070; 87205; 87641; 93005; 93306; 93970; 94640; 94660; 94664; 96365; 96367; 96372; 96375; 97110; 97116; 97161; 97530; 99291; J0692; J1100; J1644; J1650; J1815 ×2; J1940; J2543; J3262; J3535; J8540; Q9967

== ENCOUNTER → 2021-03-15 11:29 | Outpatient (BNVA) | payer MEDICARE, OTHER, SELFPAY | PROVIDERS: PCP Internal Medicine; Visit Provider Family Medicine | DX: U07.1 COVID-19 (principal); E03.9 Hypothyroidism, unspecified | CPT/HCPCS: 71046; 84439 ==

== ENCOUNTER → 2021-04-18 13:46 | Outpatient (BNVA) | payer MEDICARE, OTHER, SELFPAY | PROVIDERS: PCP Internal Medicine; Visit Provider Nurse Practitioner Family | DX: J06.9 Acute upper respiratory infection, unspecified (principal); R05 Cough; R06.02 Shortness of breath; Z86.16 Personal history of COVID-19; Z87.01 Personal history of pneumonia (recurrent) | CPT/HCPCS: 71046 ==

== ENCOUNTER 2021-05-16 07:47 | Outpatient (CLI) | payer MEDICARE, OTHER, SELFPAY ==
--- NOTE | 2021-05-16 08:30 | CT_ITS ---
WS: [id number] CTA OF THE CHEST WITH PULMONARY EMBOLISM PROTOCOL TECHNIQUE: High-resolution contrast enhanced CTA of the chest with coronal and sagittal reformatted i mages with pulmonary embolism protocol. MIP images are also reviewed. CLINICAL INFORMATION: SOB COMPARISON: CTA February 05, 2021 DLP: 731.[address] scans at [facility] use at least one of these dose optimization techniques: automated e xposure control; mA and/or kV adjustment per patient size (includes targeted exams where dose is matc hed to clinical indication); or iterative reconstruction. FINDINGS: Previously described extensive groundglass infiltrates essentially resolved. Small amount of residual hazy infiltrate atelectasis in the mid lungs and subsegmental atelectasis in the lower lobes. No foc al pneumonia or pleural fluid. Moderate chronic emphysematous changes. No mediastinal or hilar lympha denopathy. Adrenal glands are normal. Normal GE junction. Normal caliber thoracic aorta. Proximal main pulmonary arteries are normal. Normal segmental and subs egmental pulmonary arteries. No filling defects. No evidence of pulmonary embolus. CT/CT angio chest PE protcl [id number] IMPRESSION: 1. No evidence of pulmonary embolus. 2. Previously described extensive pulmonary infiltrates have essentially resol lalo compared to previous. 3. No mediastinal or hilar lymphadenopathy. 4. No other significant findings.
[2021-05-16 08:56] LABS: Blood Urea Nitrogen 21 mg/dL (8-23)
[2021-05-16] MEDS: iodixanol 320 mg/mL 100mL Btl IV (09:07)
== END 2021-05-16 07:48 | disposition home or self-care (01) ==
PROVIDERS: PCP Family Medicine; Visit Provider Internal Medicine Pulmonary Disease
DX: R06.02 Shortness of breath (principal); Z86.16 Personal history of COVID-19; Z01.812 Encounter for preprocedural laboratory examination
CPT/HCPCS: 71275; 82565; 84520; Q9967

== ENCOUNTER 2021-05-28 09:39 | Outpatient (CLI) | payer MEDICARE, OTHER, SELFPAY ==
[2021-05-28 10:08] VITALS: BMI 42.3
--- NOTE | 2021-05-28 10:08 | ECG_ITS ---
[facility] Test Date: 2021-05-28 Pat Name: Kain Gallegos Department: Room: Gender: Male Tiler'S Assistant: : 1950 Requested By: Evan Aptanar B Order Number: [id number] Carey MD: OLESYA BIANCHI Interpretive Statements NAME OF STUDY: LEXISCAN SESTAMIBI STRESS TEST INDICATION: Shortness of Breath, NOTE: Please note that this is the electrocardiogram portion of the Lexiscan/Sestamibi stress test. The perfusion scan will be documented separately. DATA: Baseline heart rate was 72 beats per minute. Baseline blood pressure was 134/80 millimeters of mercury. Target heart rate was 147. Maximum heart rate achieved was 94. which was 63 % of the predicted target heart rate. Maximum blood pressure was 136/80 millimeters of mercury. The reason for ending the test was completion of the protocol. The patient did not experience any symptoms. ELECTROCARDIOGRAM: BASELINE: Sinus rhythm. Normal axis. Anterior leads T wave inversion cannot rule out ischemia EXERCISE: After Lexiscan injection, no ST-T changes suggestive of ischemic noted. No arrhythmia noted. CONCLUSION: Please note due to baseline abnormality of the EKG specificity and sensitivity of the EKG portion of LexiScan MIBI stress test will be low 1. EKG not suggestive of ischemia 2. Lexiscan injection unremarkable. 3. Perfusion scan will be documented separately. Electronically Signed On 05-31-2021 21:40:42 CDT by OLESYA BIANCHI [id number]
--- NOTE | 2021-05-28 10:09 | NMCV_ITS ---
NM rylie perf SPECT r/s* [id number] Kain Gallegos Age: 71 Gender: M : 1950 Exam Date: 05/28/2021 10:47 Ordering Phys: Evan Mary MD Technologist: CIERA Cotton Exam Location: [facility] Indications: SHORTNESS OF BREATH STRESS TEST Please [facility] for [facility] IMAGE PROTOCOL Rest/Stress 1 Lexiscan Day Radiopharmaceutical Dose (mCi) Administration Site Administered by Rest: Tc-99m 10.5 IV CIERA Cotton Sestamibi Stress:Tc-99m 32.9 IV CIERA Quintero Sestamibi Rest: 28-May-2021 60 Discovery 630 Stress: 28-May-2021 30 Discovery 630 0.4mg Lexiscan. Images obtained in supine and prone position. SPECT RESULTS Technical Quality: Excellent Raw Data Analysis: Normal Image Corrections: No attenuation or motion correction applied Summed Stress Score: 2 Summed Rest Score: 1 Summed Difference Score: 1 PERFUSION FINDINGS Medium-sized area of fixed perfusion defect surrounded by small area of mild reversibility suggestive of venus-infarct ischemia in the inferior wall. FUNCTIONAL RESULTS (calculated via Gated SPECT) Stress Image LV EF (%): 58 Stress EDV (mL):93 TID: 1.02 Stress ESV (mL):39 Rest Image LV EF (%): 58 FUNCTIONAL FINDINGS: Basal to distal inferior wall hypokinesis. IMPRESSIONS Medium-sized area of old myocardial infarction surrounded by small area of mild to moderate inferolateral venus-infarct ischemia suggestive of possible lesion in dominant RCA noted. EKG segment was documented separately. Nirmal Kaye MD (Electronically Signed) Final Date: 28 May 2021 18:31 S
[2021-05-28 11:35] VITALS: BP 127/65; PULSE 84
[2021-05-28] MEDS: regadenoson 0.4 Mg/5 ml Syringe IVP (11:35)
== END 2021-05-28 09:40 | disposition home or self-care (01) ==
LOC: CDL 09:45
PROVIDERS: PCP Family Medicine; Visit Provider Internal Medicine Pulmonary Disease
DX: R06.02 Shortness of breath (principal); I25.9 Chronic ischemic heart disease, unspecified; I25.2 Old myocardial infarction
CPT/HCPCS: 78452; 93017; A9500; J2785

== ENCOUNTER → 2021-06-18 11:35 | Outpatient (BNVA) | payer MEDICARE, OTHER, SELFPAY | PROVIDERS: PCP Family Medicine; Visit Provider Internal Medicine Cardiovascular Disease | DX: R06.02 Shortness of breath (principal); I50.33 Acute on chronic diastolic (congestive) heart failure; R94.39 Abnormal result of other cardiovascular function study; E11.9 Type 2 diabetes mellitus without complications; E03.9 Hypothyroidism, unspecified; E78.5 Hyperlipidemia, unspecified; Z87.891 Personal history of nicotine dependence | CPT/HCPCS: 80048; 83880 ==

== ENCOUNTER → 2021-07-13 09:26 | Outpatient (BNVA) | payer MEDICARE, OTHER, SELFPAY | PROVIDERS: PCP Family Medicine; Visit Provider Internal Medicine Cardiovascular Disease | DX: Z01.812 Encounter for preprocedural laboratory examination (principal); R06.02 Shortness of breath; E78.5 Hyperlipidemia, unspecified; Z20.822 Contact with and (suspected) exposure to COVID-19 | CPT/HCPCS: 80048; 85025; 85610; 86850; 86900; 87635 ==

== ENCOUNTER 2021-07-18 05:48 | Outpatient (CLI) | payer MEDICARE, OTHER, SELFPAY ==
[2021-07-18] VITALS (15 sets, daily range): BP systolic 121–146; BP diastolic 61–94; PULSE 70–85; RESP 13–20; TEMP 36.8; O2SAT 92–95; BMI 42.2
--- NOTE | 2021-07-18 06:00 | XACV_ITS ---
Ht: 178 cm Wt: 133 kg BSA: 2.63 m2 Gender: Male : 1950 Any Known Allergies: Sulfa Exam Priority: Routine Indication(s): - Shortness of breath - Abnormal stress perfusion study Procedure(s): Procedure Description: Diagnostic procedure Procedure Description: Left Heart Catheterization Procedure Description: Left ventriculography Procedure Description: Coronary Angiography Seymour JIANG; Diagnostic Cath Status: Elective Diagnostic Findings * No disease noted in the Left Main, Left Anterior Descending, Right, or Circumflex coronary arteries. * Coronary angiography shows right dominance. * The left main is a medium sized vessel which appears to have minimal ostial narrowing. No significant stenotic lesions. * The left anterior descending artery is a medium caliber vessel which appears to wrap around the LV apex minimally. After giving of the first diagonal branch, there was a tubular narrowing of around 40% in the mid LAD. No other significant stenotic lesions were noted. * The left circumflex artery is a medium to large caliber dominant vessel which was found to have no significant stenotic lesions. The PDA branch given off by the circumflex artery appears to have diffuse intimal irregularities. * The right coronary artery is a relatively small caliber nondominant vessel with no significant stenotic lesions. Conclusions 1. This is a 71-year-old white male with history of high hypertension, dyslipidemia, type 2 diabetes and COPD, presents with a progressive shortness of breath. He had a myocardial perfusion imaging which revealed areas of fixed and reversible defects in the distribution of the right coronary artery. In view of the worsening of the symptoms ,multiple risk factors and the abnormal myocardial perfusion imaging, in order to further evaluate his coronary status, a cardiac catheterization was recommended. Patient underwent left heart catheterization with left and right coronary angiogram and LV angiogram today. The findings are as follows. 2. 40% tubular lesion in the mid LAD. Nondominant right coronary artery. Elevated LVEDP of 24 mmHg. Normal LV ejection fraction 55%. Recommendations * Continue current medical management and risk factor modification. Diagnostic RX Recommendation: medical therapy and/or counseling LV EDP: 24 mmHg Ventriculography Ejection Fraction: 55.0 % Left Ventriculography Findings: * The LV gram was performed in the LINDSAY projection. LV cavity appeared to be of normal size. There was no filling defects noted. No wall motion abnormalities were seen. No significant mitral valve prolapse or mitral regurgitation. Overall LV ejection fraction was 55%. LVEDP was 24 mmHg. Pressures Phase:Rest AO : 98 / 71 ( 84 ) @ 5:29:00 AM 125 / 63 ( 89 ) @ 5:32:00 AM 110 / 38 ( 70 ) @ 5:32:00 AM 20 / -5 ( 6 ) @ 5:38:00 AM 125 / 69 ( 94 ) @ 5:41:00 AM 126 / 69 ( 94 ) @ 5:41:00 AM LV : 88 / 13 / 19 @ 5:32:00 AM 121 / 4 / 24 @ 5:32:00 AM 123 / 3 / 23 @ 5:32:00 AM 126 / 3 / 25 @ 5:40:00 AM 127 / 3 / 25 @ 5:41:00 AM 128 / 4 / 27 @ 5:41:00 AM Valves Phase:DefaultPhase AV : 1.0 @ 7:52:37 AM AV Mean Gradient: 0.0 @ 7:52:37 AM Clinical Evaluation EBL: 5mL-10mL Procedural Details Procedure Consent Obtained. Admit Source: Out Patient. Pre-Procedure Time Out. Identified patient by full name and date of as verbalized by the patient/guarantor. Does the consent match the physician's order: Yes. Accurate & Complete Informed Consent: Yes. Inpatient/Outpatient History & Physical on Chart: Yes. If H&P is completed, is and addenduem needed: No; If yes, is the addendum complete: N/A. Visualize and Verify Site with Patient/Guarantor: N/A. Relevant Radiology Images available: N/A. The risks, benefits, and alternatives of sedation and/or procedure were discussed by physician. The patient agrees to continue. Procedure started. [facility] Clinical Fraility Score: 4: Vulnerable. Chest Pain Symptom Assessment: Atypical Angina. Cardiovascular Instability: No, Stable. Correct patient, site and procedure confirmed by cath team. PERRLA. Strong, equal hand call center operations manager bilaterally. Lungs clear x 5 lobes. IV Site on Arrival: 20 gauge in the right anticubital. IV Fluids: 0.9% NaCl at KVO. 0 mL infused prior to laborer high density press. Pre Procedural Pulses: bilateral radial was 3+. Pre Procedural Pulses: bilateral posterior tibial was Doppled. Pre Procedural Pulses: bilateral dorsalis pedis was Doppled. Oxygen started at 2liters/min via nasal canula. right groin was prepped with chloroprep then draped in the usual sterile fashion. right radial was prepped with chloroprep then draped in the usual sterile fashion. Physician notified. Current diagnosis: Chest Pain, ASHD. Baseline sample Acquired. HR: 61 BPM. Patient's family unavailable. Equipment: 6F - Radial. Cardiac Cath Pack. ACIST Manifold Kit Model BT 2000. Heparinized Saline (2 units/mL), 1000 mL bag. Equipment: 5F - Femoral. Equipment: 6F - Femoral. Equipment: 6F - Radial. Physician arrived. Physician scrubbed in. Immediate Pre-Procedure Time Out. Correct Patient: Yes; Correct Procedure: Yes; Correct Site: Yes; Correct Patient Position: Yes; Correct Supplies: Yes; Dried Flammable Prep: Yes; Blood Products Available: N/A;. Lidocaine 1% infiltrated to the right radial. Arterial access obtained. A 5 yemeni Adalberto catheter in over exchange wire. Wire out. Hand injection of the right subclavian. Glidewire inserted. Catheter advanced to the aortic valve for coronary cannulation. Inventory is TR Glidewire Angled Stiff Shaft .035 260cm. Multiple views taken of left coronary artery. Catheter redirected to the RCA. Unable to cannulate RCA. Catheter dropped to LV. Wire removed. EDP Sample taken: LV 88/13,19; HR: 29 BPM; SpO2: 94%. EDP Sample taken: LV 121/4,24; HR: 75 BPM; SpO2: 94%. Pullback taken: LV 123/3,23; AO 125/63(89); Mean: 0mmHg, Peak to Peak: 0mmHg, SEP: 18sec/min; HR: 72 BPM; SpO2: 95%. Catheter removed over the wire. A CRD 5F JR4 Diagnostic Catheter was advanced over the wire and used for Right coronary angiography. Multiple views taken of right coronary artery. Catheter removed over the exchange wire. A CRD 5F 145 Angled Pig Diagnostic Catheter was advanced over the wire and used for Ventriculography. EDP Sample taken: LV 126/3,25; HR: 71 BPM; SpO2: 96%. LV gram performed in LINDSAY @ 10 mL/second for a total of 30 mL. Patient EF: Normal. EDP Sample taken: LV 127/3,25; HR: 72 BPM; SpO2: 96%. Pullback taken: LV 128/4,27; AO 125/69(94); Mean: 0mmHg, Peak to Peak: 1mmHg, SEP: 17sec/min; HR: 72 BPM; SpO2: 96%. Catheter removed over the exchange wire. Physician review of films. Physician scrubbed out. A TR Band was successful obtaining hemostatsis at the Right Radial artery insertion site. TR band placed. Hemostasis obtained. Post Procedure: Pulses reassessed and unchanged. PERRLA. Strong, equal hand call center operations manager bilaterally. No VTE prophylaxis required. Medication's Wasted: Lidocaine 1% = 17 mL. Medication's Wasted: Heparin = 1000 units. Medication's Wasted: Nitro = 49.8 mg. Medication's Wasted: Fentanyl = 50 mcg. Total IV fluids: 287 mL. Fluoro: 8:06. Contrast type used: Omnipaque 300 mg/mL, 150 mL bottle. Omnipaque 127 mL. Post-op diagnosis: Mild CAD; LV diastolic dysfunction. Complications: None. Estimated blood loss: 5mL-10mL. Responsiveness - Normal response to verbal stimuli; alert and oriented, PERRLA. Airway - Unaffected, no intervention required; spontaneous ventilation. Circulation: W/N/L, pulses unchanged. Nausea/Vomiting: No. Procedure completed. Patient transferred by wheelchair to CPRU. Current Diagnosis : Chest Pain. Access Site Site: Right Radial artery Sheath Size: 6 Fr Hemostasis Method: TR Band Hemostasis Success: Successful Procedure Medications Start: 7:06 AM Stop: 7:06 AM Medication: Versed Amount: 1 mg Route: I.V. Start: 7:06 AM Stop: 7:06 AM Medication: Fentanyl Amount: 50 mcg Route: I.V. Start: 7:16 AM Stop: 7:16 AM Medication: Versed Amount: 1 mg Route: I.V. Start: 7:19 AM Stop: 7:19 AM Medication: 0.9% Saline Amount: 250 ml Route: I.V. bolus Start: 7:19 AM Stop: 7:19 AM Medication: Verapamil Amount: 5 mg Route: I.A. Start: 7:19 AM Stop: 7:19 AM Medication: Nitrogylcerin Amount: 200 mcg Route: I.A. Start: 7:24 AM Stop: 7:24 AM Medication: Heparin Amount: 5000 units Route: I.V. I, the attending physician, have reviewed and verified all procedure medications. Yes, all medications given per verbal order History/Risk Factors Hypertension: No Dyslipidemia: No Peripheral Arterial Disease (PAD): No Myocardial Infarction (PR): No Obesity: Yes Renal Disease: No Tobacco Use: Former Prior Interventions PCI: No CABG: No Valve Surgery: No Report Signatures Finalized by Dr Regino Ahuja MD [facility] on 07/18/2021 09:07 PM
[2021-07-18] MEDS: diphenhydrAMINE 50 mg Capsule PO (06:05)
--- NOTE | 2021-07-18 07:06 | W.PM.OPSUD ---
Surgery/Procedure H&P Update DATE OF PROCEDURE: July 18, 2021 DATE H&P PERFORMED: 06/18/21 H&P UPDATE INFORMATION: I have reviewed H&P completed within last 30 days, I have examined patient prior to procedure and No changes to prior documentation PREOP DIAGNOSIS: ASHD PRIMARY INDICATION FOR PROCEDURE: SOB/Abnormal stress test PLANNED PROCEDURE: Operation Date: 07/18/21 07:00 Proposed Procedures p Cardiac Catheterization(Left) - Regino Ahuja MD PATIENT REASSESSED PRIOR TO SEDATION, WITH NO CHANGE NOTED: Yes PHYSICAL EXAM: alert, clear to auscultation bilaterally, regular rate & rhythm and operative site marked AIRWAY EVAL/ANESTHESIA PLAN: normal airway, see other exam findings, ASA III, Monitored Anesthesia, Local Anesthesia, Risks, benefits & alternatives of sedation and/or procedure discussed and Patient agrees to continue as planned
--- NOTE | 2021-07-18 07:46 | SUR.PHASEII ---
Received the patient back from the laboratory equipment cleaner via wheelchair s/p diagnostic [facility]. The patient ambulated to the cot from the wheelchair. A & O x3. barber shop manager placed and vital signs obtained. TR band intact to the right wrist with no bleeding or hematoma. No other assessment changes noted from pre cath. Activity restrictions verbally given to the patient as far as right arm use and weight bearing. he verbalized his understanding. his cousin, Ulysses, at bedside. Plan for DC home around 1100.
--- NOTE | 2021-07-18 09:00 | SUR.PHASEII ---
Letting the air out of the TR band per protocol. No other assessment changes noted.
--- NOTE | 2021-07-18 09:55 | SUR.PHASEII ---
Dr. Ahuja here to see patient. verbal orders given to add Isosorbide Mononitrate. See orders.
--- NOTE | 2021-07-18 10:05 | SUR.PHASEII ---
TR band off. Site cleansed with warm water and patted dry. A large baindaid was applied to the site and loosely secured with coban. activity restrictions were again verbalized to the patient with his understanding. no other changes noted at this time. cousin remains at bedside.
[2021-07-18] MEDS: isosorbide mononitrate ER 30 mg Tablet PO (10:10)
--- NOTE | 2021-07-18 11:30 | SUR.PHASEII ---
Patient discharged home via wheelchair with his cousin, Ulysses.
== END 2021-07-18 05:49 | disposition home or self-care (01) ==
PROVIDERS: PCP Family Medicine; Visit Provider Internal Medicine Cardiovascular Disease
DX: I25.10 Atherosclerotic heart disease of native coronary artery without angina pectoris (principal); R94.39 Abnormal result of other cardiovascular function study; I10 Essential (primary) hypertension; E78.5 Hyperlipidemia, unspecified; E11.9 Type 2 diabetes mellitus without complications; J44.9 Chronic obstructive pulmonary disease, unspecified; E66.9 Obesity, unspecified; Z68.41 Body mass index [BMI] 40.0-44.9, adult; Z87.891 Personal history of nicotine dependence; Z86.16 Personal history of COVID-19; Z79.4 Long term (current) use of insulin; E03.9 Hypothyroidism, unspecified
CPT/HCPCS: 93458; C1769; C1887; C1894; J1644; J2250; J3010; J3490; J7030; Q0163; Q9967

== ENCOUNTER → 2021-07-26 10:40 | Outpatient (BNVA) | payer MEDICARE, OTHER, SELFPAY | PROVIDERS: PCP Family Medicine; Visit Provider Nurse Practitioner Family | DX: R94.39 Abnormal result of other cardiovascular function study (principal) | CPT/HCPCS: 80048 ==

== ENCOUNTER → 2021-10-10 11:22 | Outpatient (BNVA) | payer MEDICARE, OTHER, SELFPAY | PROVIDERS: PCP Family Medicine; Visit Provider Nurse Practitioner Family | DX: E78.5 Hyperlipidemia, unspecified (principal); C85.90 Non-Hodgkin lymphoma, unspecified, unspecified site; I10 Essential (primary) hypertension; E66.01 Morbid (severe) obesity due to excess calories; Z68.42 Body mass index [BMI] 45.0-49.9, adult; K58.9 Irritable bowel syndrome, unspecified; E11.65 Type 2 diabetes mellitus with hyperglycemia; K57.90 Diverticulosis of intestine, part unspecified, without perforation or abscess without bleeding; E03.9 Hypothyroidism, unspecified; E11.9 Type 2 diabetes mellitus without complications; Z12.5 Encounter for screening for malignant neoplasm of prostate; G47.33 Obstructive sleep apnea (adult) (pediatric); Z99.89 Dependence on other enabling machines and devices; J32.9 Chronic sinusitis, unspecified; N40.0 Benign prostatic hyperplasia without lower urinary tract symptoms; K58.0 Irritable bowel syndrome with diarrhea; K90.0 Celiac disease; F41.9 Anxiety disorder, unspecified; F32.A Depression, unspecified | CPT/HCPCS: 80053; 80061; 83036; 84443; G0103 ==

== ENCOUNTER → 2021-10-17 15:04 | Outpatient (BNVA) | payer MEDICARE, OTHER, SELFPAY | PROVIDERS: PCP Family Medicine; Visit Provider Internal Medicine Cardiovascular Disease | DX: Z09 Encounter for follow-up examination after completed treatment for conditions other than malignant neoplasm (principal); E03.9 Hypothyroidism, unspecified; I10 Essential (primary) hypertension; E11.65 Type 2 diabetes mellitus with hyperglycemia; I25.10 Atherosclerotic heart disease of native coronary artery without angina pectoris | CPT/HCPCS: 99214 ==

== ENCOUNTER 2021-11-29 19:00 | Outpatient (CLI) | payer MEDICARE, OTHER, SELFPAY | END 2021-11-29 19:01 | disposition home or self-care (01) | LOC: SLEEP 11-30 10:24 | PROVIDERS: PCP Nurse Practitioner Family; Visit Provider Nurse Practitioner Family | DX: G47.33 Obstructive sleep apnea (adult) (pediatric) (principal); Z99.89 Dependence on other enabling machines and devices | CPT/HCPCS: 94762 ==

== ENCOUNTER 2021-12-10 10:16 | Outpatient (CLI) | payer MEDICARE, OTHER, SELFPAY ==
--- NOTE | 2021-12-10 12:00 | CT_ITS ---
WS: [id number] CT CHEST, ABDOMEN, AND PELVIS TECHNIQUE: Noncontrast CT of the chest, abdomen, and pelvis with coronal and sagittal reformatted ellie ges. CLINICAL INFORMATION: routine survalience due to HX of Non Hodgkins lymphoma COMPARISON: CTA chest May 16, 2021 DLP: 1850.[address] scans at [facility] use at least one of these dose optimization techniques: automated e xposure control; mA and/or kV adjustment per patient size (includes targeted exams where dose is matc hed to clinical indication); or iterative reconstruction. CT CHEST: Moderate chronic emphysematous changes. No acute pulmonary infiltrates. Subsegmental atelectasis in t he lung bases. No focal pneumonia or pleural fluid. Mild aortic calcification. Normal caliber thoracic aorta. No mediastinal or hilar lymphadenopathy. No axillary lymphadenopathy. Mild thoracic curve. Hypertrophic changes thoracic spine. CT ABDOMEN AND PELVIS: Noncontrast liver and spleen are normal. Normal GE junction. Noncontrast pancreas is normal. Adrenal glands are normal. No hydronephrosis in either kidney. Normal caliber abdominal aorta. Aortic calcifi cation. No upper abdominal or periaortic lymphadenopathy. No pelvic or inguinal lymphadenopathy. Normal sigmo id colon. No evidence of high-grade small or large bowel obstruction. Fat-containing umbilical hernia . No herniated bowel. Hypertrophic changes lower thoracic and upper lumbar spine. CT/CT chest abd pel wo con IMPRESSION: 1. No adenopathy in the chest abdomen or pelvis. 2. Both lungs are well aerated. Bibasilar atelectasis. 3. No acute findings in the abdomen or pelvis.
== END 2021-12-10 10:17 | disposition home or self-care (01) ==
PROVIDERS: PCP Nurse Practitioner Family; Visit Provider Nurse Practitioner Family
DX: Z85.72 Personal history of non-Hodgkin lymphomas (principal); Z85.828 Personal history of other malignant neoplasm of skin
CPT/HCPCS: 71250; 74176

== ENCOUNTER 2021-12-25 14:00 | Outpatient (CLI) | payer MEDICARE, OTHER, SELFPAY | END 2021-12-25 14:01 | disposition home or self-care (01) | LOC: SLEEP 12-26 16:41 | PROVIDERS: PCP Nurse Practitioner Family; Visit Provider Nurse Practitioner Family | DX: G47.33 Obstructive sleep apnea (adult) (pediatric) (principal); Z99.89 Dependence on other enabling machines and devices | CPT/HCPCS: G0399 ==

== ENCOUNTER → 2022-03-11 12:49 | Outpatient (BNVA) | payer MEDICARE, OTHER, SELFPAY | PROVIDERS: PCP Nurse Practitioner Family; Visit Provider Nurse Practitioner Family | DX: E11.65 Type 2 diabetes mellitus with hyperglycemia (principal); E78.5 Hyperlipidemia, unspecified; I10 Essential (primary) hypertension; E03.9 Hypothyroidism, unspecified; M19.90 Unspecified osteoarthritis, unspecified site; L02.91 Cutaneous abscess, unspecified; L98.9 Disorder of the skin and subcutaneous tissue, unspecified; Z85.72 Personal history of non-Hodgkin lymphomas; Z85.828 Personal history of other malignant neoplasm of skin; F41.9 Anxiety disorder, unspecified; F32.A Depression, unspecified; K57.90 Diverticulosis of intestine, part unspecified, without perforation or abscess without bleeding | CPT/HCPCS: 80053; 80061; 83036 ==

== ENCOUNTER → 2022-05-28 11:02 | Outpatient (BNVA) | payer MEDICARE, OTHER, SELFPAY | PROVIDERS: PCP Nurse Practitioner Family; Visit Provider Internal Medicine Cardiovascular Disease | DX: E78.5 Hyperlipidemia, unspecified (principal); R07.89 Other chest pain; I25.10 Atherosclerotic heart disease of native coronary artery without angina pectoris; I10 Essential (primary) hypertension; E66.01 Morbid (severe) obesity due to excess calories; Z68.42 Body mass index [BMI] 45.0-49.9, adult; E11.9 Type 2 diabetes mellitus without complications; Z79.4 Long term (current) use of insulin | CPT/HCPCS: 36415; 80061; 80076; 99214 ==

== ENCOUNTER → 2022-06-18 16:54 | Outpatient (BNVA) | payer MEDICARE, OTHER, SELFPAY | PROVIDERS: PCP Nurse Practitioner Family; Visit Provider Nurse Practitioner Family | DX: Z12.5 Encounter for screening for malignant neoplasm of prostate (principal); I10 Essential (primary) hypertension; E11.65 Type 2 diabetes mellitus with hyperglycemia; E78.5 Hyperlipidemia, unspecified; F41.9 Anxiety disorder, unspecified; F32.A Depression, unspecified; K58.9 Irritable bowel syndrome, unspecified; E03.9 Hypothyroidism, unspecified | CPT/HCPCS: 80053; 80061; 83036; G0103 ==

== ENCOUNTER → 2022-09-26 13:25 | Outpatient (BNVA) | payer MEDICARE, OTHER, SELFPAY | PROVIDERS: PCP Nurse Practitioner Family; Visit Provider Nurse Practitioner Family | DX: E11.65 Type 2 diabetes mellitus with hyperglycemia (principal); I10 Essential (primary) hypertension; Z00.00 Encounter for general adult medical examination without abnormal findings; E78.5 Hyperlipidemia, unspecified; F41.9 Anxiety disorder, unspecified; F32.A Depression, unspecified; E66.01 Morbid (severe) obesity due to excess calories; Z68.42 Body mass index [BMI] 45.0-49.9, adult; E03.9 Hypothyroidism, unspecified | CPT/HCPCS: 80053; 80061; 83036; 84443 ==

== ENCOUNTER → 2023-01-22 16:01 | Outpatient (BNVA) | payer MEDICARE, OTHER, SELFPAY | PROVIDERS: PCP Nurse Practitioner Family; Visit Provider Nurse Practitioner Family | DX: I10 Essential (primary) hypertension (principal); E11.65 Type 2 diabetes mellitus with hyperglycemia; E78.5 Hyperlipidemia, unspecified | CPT/HCPCS: 80053; 80061; 83036; 84439; 84443 ==

== ENCOUNTER 2023-02-11 10:02 | Outpatient (CLI) | payer MEDICARE, OTHER, SELFPAY ==
--- NOTE | 2023-02-11 10:08 | XRR_ITS ---
PROCEDURE INFORMATION: Exam: XR Chest Exam date and time: 02/11/2023 10:22 AM Age: 72 years old Clinical indication: Cough; Patient HX: HX of lymphoma; Additional info: Cough and congestion, PT having u/s too TECHNIQUE: Imaging protocol: Radiologic exam of the chest. Views: 2 views. COMPARISON: CT chest abdpel [id number] 12/10/2021 10:26 AM FINDINGS: Lungs: Unremarkable. No consolidation. Pleural spaces: Unremarkable. No pleural effusion. No pneumothorax. Heart/Mediastinum: Unremarkable. No cardiomegaly. Bones/joints: Unremarkable. XR/XR chest 2V* [id number] IMPRESSION: No acute findings.
--- NOTE | 2023-02-11 11:00 | USCV_ITS ---
Kain Gallegos Age: 72 Gender: M : 1950 Exam Date: 02/11/2023 10:56 Ordering Phys: Kalli Jewell NP Technologist: CT Exam Location: [facility] [place] Indication: sob BP: 115 / 63 HR: 71 Rhythm: Sinus Technical Quality: Adequate MEASUREMENTS (Male / Female) Normal Values 2D ECHO LV Diastolic Diameter PLAX 5.4 cm 4.2 - 5.9 / 3.9 - 5.3 cm LV Systolic Diameter PLAX 3.7 cm IVS Diastolic Thickness 1.3 cm 0.6 - 1.0 / 0.6 - 0.9 cm IVS Systolic Thickness 1.4 cm LVPW Diastolic Thickness 1.4 cm 0.6 - 1.0 / 0.6 - 0.9 cm LVPW Systolic Thickness 2.1 cm LVOT Diameter 2.5 cm LV Ejection Fraction 2D Teich 58.5 % LV Ejection Fraction MOD 2C 58.7 % LV Ejection Fraction 2C AL 59.8 % LA Diameter 5.1 cm Aorta at Sinotubular Diameter 2.2 cm M-MODE Aortic Annulus Diameter 3.0 cm LA Ao Ratio MM 1.9 MV E Point Septal Separation 1.1 cm DOPPLER AV Peak Velocity 124.0 cm/s LVOT Peak Velocity 101.0 cm/s AV Area Cont Eq vti 4.2 cm squared AV Area Cont Eq pk 3.9 cm squared MV Peak Velocity 100.0 cm/s MV Area PHT 3.3 cm squared Mitral E to A Ratio 0.8 MV E' Velocity 46.0 cm/s Mitral E to MV E' Ratio 9.6 Mitral E to LV E' Lateral Ratio 10.0 Mitral E to LV E' Septal Ratio 9.4 TV Peak E Velocity 67.0 cm/s Right Atrial Pressure 3.0 mmHg FINDINGS Left Ventricle Normal left ventricular size and systolic function, EF 65 %. No regional wall motion abnormalities. Mild left ventricular hypertrophy. Grade I/IV diastolic dysfunction (abnormal relaxation filling pattern), normal to mildly elevated filling pressures. Right Ventricle The right ventricle is normal in size and function. Right Atrium The right atrium is normal in size. Left Atrium The left atrium is normal in size. Mitral Valve No gross abnormalities noted. Aortic Valve No gross abnormalities noted Tricuspid Valve No gross abnormalities noted Pulmonic Valve No gross abnormalities noted Pericardium Normal pericardium without effusion. Aorta Normal ascending aorta dimension. IVC Inferior vena cava not visualized. CONCLUSIONS Normal left ventricular size and systolic function, EF 65 %. No regional wall motion abnormalities. Mild left ventricular hypertrophy. Grade I/IV diastolic dysfunction (abnormal relaxation filling pattern), normal to mildly elevated filling pressures. No significant stenotic or relative lesions Normal cardiac chamber sizes. There is no pericardial effusion. There are no intracardiac masses. Compared to the study from 02/06/2021, there may not be a significant change Dr Regino Ahuja MD [facility] (Electronically Signed) Final Date: 14 February 2023 19:02 S
== END 2023-02-11 10:03 | disposition home or self-care (01) ==
PROVIDERS: PCP Nurse Practitioner Family; Visit Provider Nurse Practitioner Family
DX: I95.1 Orthostatic hypotension (principal); R06.09 Other forms of dyspnea; R05.9 Cough, unspecified; R06.02 Shortness of breath; I51.7 Cardiomegaly; I51.89 Other ill-defined heart diseases
CPT/HCPCS: 71046; 93306

== ENCOUNTER → 2023-03-03 10:55 | Outpatient (BNVA) | payer MEDICARE, OTHER, SELFPAY | PROVIDERS: PCP Nurse Practitioner Family; Visit Provider Internal Medicine Cardiovascular Disease | DX: I95.1 Orthostatic hypotension (principal); I25.10 Atherosclerotic heart disease of native coronary artery without angina pectoris; R06.09 Other forms of dyspnea; I10 Essential (primary) hypertension; E11.9 Type 2 diabetes mellitus without complications; E66.01 Morbid (severe) obesity due to excess calories; Z68.42 Body mass index [BMI] 45.0-49.9, adult; E78.5 Hyperlipidemia, unspecified; Z87.891 Personal history of nicotine dependence; Z79.4 Long term (current) use of insulin | CPT/HCPCS: 99214 ==

== ENCOUNTER 2023-03-19 06:29 | Outpatient (CLI) | payer MEDICARE, OTHER, SELFPAY ==
--- NOTE | 2023-03-19 | ECG_ITS ---
[facility] Test Date: 2023-03-19 Pat Name: Kain Gallegos Department: Room: Gender: Male Relationship Counselor: : 1950 Requested By: Fariba José Order Number: [id number] Patino MD: Fariba José M.D. Interpretive Statements NAME OF STUDY: LEXISCAN SESTAMIBI STRESS TEST INDICATION: Dyspnea on exertion PROCEDURE: At the baseline, the blood pressure was 147/92 mm Hg with a heart rate of 75 bpm. The electrocardiogram showed sinus rhythm, normal axis.T wave inversion noted in V3-V5. Possible old inferior CT. ??? The Lexiscan was infused over a period of 20 seconds. A total of 0.4 milligrams of Lexiscan was infused. The stress phase was continued for a total of 5 minutes. Heart rate at the end of the stress phase was 81 bpm with a blood pressure of 135/54 mm Hg The EKG at the peak infusion revealed no significant ST-T wave changes. ??? Sestamibi was injected 20 seconds after the Lexiscan infusion. ??? Blood pressure at the end of the recovery phase was 123/60 mm Hg with a heart rate of 79 beats per minute. ??? CONCLUSION: 1. No significant EKG changes with the LexiScan infusion. 2. No LexiScan induced chest pain or cardiac arrhythmia. 3. Normal blood pressure and heart rate response. 4. Sestamibi/sestamibi perfusion scan pending; see separate report. Electronically Signed On 03-19-2023 22:42:20 CDT by Fariba José M.D. [email or web address]
[2023-03-19 06:48] VITALS: BMI 45.1
--- NOTE | 2023-03-19 06:53 | NMCV_ITS ---
NM rylie perf SPECT r/s* [id number] Kain Gallegos Age: 72 Gender: M : 1950 Exam Date: 03/19/2023 07:44 Ordering Phys: Fariba José MD ([email or web address]) Technologist: CIERA Cotton Exam Location: [facility] Indications: SHORTNESS OF BREATH ON EXERTION STRESS TEST Please see separate stress test report in [facility] for full findings IMAGE PROTOCOL Rest/Stress 1 Lexiscan Day Radiopharmaceutical Dose (mCi) Administration Site Administered by Rest: Tc-99m 10.9 IV CIERA Quintero Sestamibi Stress:Tc-99m 32.9 IV CIERA Quintero Sestamibi Rest: 19-Mar-2023 60 Discovery 630 Stress: 19-Mar-2023 30 Discovery 630 0.4mg Lexiscan. Images obtained in supine and prone position. SPECT RESULTS Technical Quality: Excellent Raw Data Analysis: Normal Image Corrections: No attenuation or motion correction applied Summed Stress Score: 2 Summed Rest Score: 1 Summed Difference Score: 1 PERFUSION FINDINGS Small sized perfusion abnormality of mild severity of mid inferolateral and apical lateral garcia with subtle reversibility in supine stress images with improved tracer uptake in prone stress images. FUNCTIONAL RESULTS (calculated via Gated SPECT) Stress Image LV EF (%): 68 Stress EDV (mL):87 TID: 1.04 Stress ESV (mL):28 FUNCTIONAL FINDINGS: The left ventricle is normal in size. Transient Ischemia Dilatation of 1. The left ventricular ejection fraction is normal with a value of 68%. There is normal left ventricular wall thickening. Normal end diastolic and end systolic volumes. IMPRESSIONS 1. Myocardial perfusion imaging is normal. Attenuation artifact in lateral wall. 2. Overall left ventricular systolic function is normal without regional wall motion abnormalities, LVEF=68%. 3. EKG portion of the study will be reported separately. 4. Scan indicates low risk for cardiac events. . Fariba José MD (Electronically Signed) Final Date: 19 March 2023 22:24 S
[2023-03-19] MEDS: regadenoson 0.4 Mg/5 ml Syringe IVP (08:20)
[2023-03-19] MEDS: ondansetron 2 mg/ML SDV 2 mL 4 MG IVP (08:27)
[2023-03-19 08:33] VITALS: BP 123/60; PULSE 79
== END 2023-03-19 06:30 | disposition home or self-care (01) ==
LOC: CDL 06:30
PROVIDERS: PCP Nurse Practitioner Family; Visit Provider Internal Medicine Cardiovascular Disease
DX: R06.02 Shortness of breath (principal)
CPT/HCPCS: 36415; 78452; 93017; 96374; 96375; A9500; J2405; J2785

== ENCOUNTER → 2023-04-04 09:04 | Outpatient (BNVA) | payer MEDICARE, OTHER, SELFPAY | PROVIDERS: PCP Nurse Practitioner Family; Visit Provider Nurse Practitioner Family | DX: L21.8 Other seborrheic dermatitis (principal); L72.0 Epidermal cyst; L85.3 Xerosis cutis; D22.5 Melanocytic nevi of trunk; L81.4 Other melanin hyperpigmentation; L57.8 Other skin changes due to chronic exposure to nonionizing radiation; L57.0 Actinic keratosis; Z85.828 Personal history of other malignant neoplasm of skin | CPT/HCPCS: 17004; 99214 ==